=== PATIENT | male | born 1955 | race Caucasian/White ===

== ENCOUNTER 2023-07-31 07:35 | Outpatient (CLI) | payer MEDICARE, SELFPAY ==
--- NOTE | ~2023-07-31 | CT_ITS ---
EXAMINATION: CTA brain carotid DATE: 07/31/2023 08:18 INDICATION: Aortic dilatation. Benign essential hypertension. TECHNIQUE: Computed tomographic angiography (CTA) of the head was performed without and with 100 mL O mnipaque-350 intravenous contrast. CTA of the neck was performed with intravenous contrast. Automated exposure control and iterative reconstruction technique were employed. The dose-length product was 1 692.37 mGy-cm. Maximum intensity projection and volume rendered 3D-reconstructions were created by adela technologist on a separate workstation. COMPARISON: None. FINDINGS: HEAD CTA: There is no intracranial hemorrhage, acute infarction, or abnormal intracranial mass lesion . The ventricles are normal in size. There is mild mucosal thickening in the paranasal sinuses. The m astoid air cells are normal. The orbits are normal. The vertebral arteries are codominant. There is n o significant stenosis of basilar artery or the posterior cerebral arteries. The posterior communicat ing arteries are normal. There is no significant stenosis of the intracranial internal carotid arteri es or anterior or middle cerebral arteries. Anterior communicating artery is normal. There is no aneu rysm. NECK CTA: There are no pathologically enlarged lymph nodes. There is no significant stenosis of the v ertebral arteries. There is plaque in the proximal internal carotid arteries. There is 0% stenosis of the proximal right internal carotid artery relative to normal distal artery lumen diameter (NASCET c riteria). There is 0% stenosis of the proximal left internal carotid artery relative to normal distal artery lumen diameter. There is severe cervical spondylosis. IMPRESSION: 1. Normal brain. No aneurysm or significant intracranial arterial stenosis. 2. 0% stenosis of the proximal internal carotid arteries relative to normal distal artery lumen diame ters (NASCET criteria). Reviewed, dictated and finalized at location E. IMPRESSION: 1. Normal brain. No aneurysm or significant intracranial arterial stenosis. 2. 0% stenosis of the proximal internal carotid arteries relative to normal dis gold artery lumen diameters (NASCET criteria).
[2023-07-31 08:09] LABS: Estimated Glomerular Filt Rate 51
== END 2023-07-31 07:36 | disposition home or self-care (01) ==
PROVIDERS: PCP Internal Medicine; Visit Provider Internal Medicine Cardiovascular Disease
DX: R55 Syncope and collapse (principal); I77.810 Thoracic aortic ectasia; I10 Essential (primary) hypertension
CPT/HCPCS: 70496; 70498; Q9967

== ENCOUNTER 2025-07-03 01:14 | Emergency (ER) | payer MEDICARE, SELFPAY ==
--- OUTSIDE RECORDS SUMMARY | 2009-09-30 19:00 | XMS_ITS | Continuity of Care Document ---
Author Organization [facility] Address [address] [facility] [address] [place] [address] Phone Care Team Providers Care House Visitor Name Role Phone Administrative, Provider Unavailable Unavail able Procedures Procedure Date Medical Record Copy Medical Record Copy Per Page Office/outpatient visit,est, mod 2005 Supplemental Report Office/outpatient visit,est, mod 2005 Supplemental Report Office consultation, moderate 6 X-ray exam of shoulder, complete 2005 Advance Directives Directive Yes / No Effective Date File Name No Information Encounters Encounter Description Practice Location Reason(s) For Visit Diagnoses Date Provider Providers Copied on Encounter [facility], [address] [place] [address], [id number], tel:[phone] [facility] No Information 9 Administrative Provider. [address] [place] [address], [place] [address], [place], [place], [id number], [place]. tel:[phone] Office/outpa tient visit,est, mod [facility], [address] [place] [address], [id number], [place] tel:[phone] [facility] No Information 6 Valentina Conway. [address] [facility], [place] [address], [place], [place], [id number], [place]. tel:[phone] Office/outpa tient visit,est, [facility], [address] [facility] [address], [place], [place], [id number], [place] tel:[phone] [facility] No Information 6 Valentina Conway. [address] [facility], [address], [place], [place], [id number], [place]. tel:[phone] Office consultation , moderate [facility], [address] [facility] [address], [place], [place], [id number], [place] tel:[phone] [facility] No Information 6 Valentina Conway. [address] [facility], [address], [place], [place], [id number], [place]. tel:[phone] Family History Family Member Type Diagnosis Age At Onset No Information Payers Payer name Insurance type Covered libertarian ID Authoriza tion(s) No Information Social History Type Description Quantity Date Captured Comments Sex Male Smoking Status No Information Chief Complaint And Reason For Visit No Information Reason For Referral Reason For Referral No Information History Of Present Illness Encounter Date Complaint History Of Prese nt Illness No Information Functional Status Date Functional Assessmen t No Information Instructions Date Instruction Additional Infor mation No Information Assessments Type Assessment Date No Information Patient Care Teams Name Effective Dates (start - stop) Status Members No Information
--- OUTSIDE RECORDS SUMMARY | 2025-06-16 11:00 | XMS_ITS | Continuity of Care Document ---
Author Organization [facility] Address [address] [place] [address] Phone Care Team Providers Care Recruitment Consultant Name Role Phone Kanwal Lee MD Unavailable Unavailabl e Medications Medication Instructions Dosage Effective Dates (start - stop) Status Comments nifedipine ER 30 mg tablet,extended release 24 hr take 1 tablet by oral route every day 30 MG - Active trospium ER 60 mg capsule,extended release 24 hr TAKE 1 CAPSULE BY MOUTH EVERY DAY - Active bupropion HCl XL 150 mg 24 hr tablet, extended release TAKE 1 TABLET BY MOUTH EVERY DAY IN THE MORNING FOR MAJOR DEPRESSIVE DISORDER - Active triamcinolone acetonide 0.1 % topical cream - Active lisinopril 40 mg tablet TAKE 1 TABLET BY MOUTH EVERY DAY - Active metoprolol tartrate 25 mg tablet TAKE 1/2 TABLET TWICE A DAY BY MOUTH - Active escitalopram 20 mg tablet - Active ketoconazole 2 % shampoo PLEASE SEE ATTACHED FOR DETAILED DIRECTIONS - No Longer Active ciprofloxacin 750 mg tablet - No Longer Active ketoconazole 2 % topical cream APPLY SMALL AMOUNT TO LEGS 2 TIMES A DAY - No Longer Active trospium 20 mg tablet - No Longer Active cephalexin 500 mg capsule - No Longer Active sulfamethoxazole 800 mg-trimethoprim 160 mg tablet TAKE 1 TABLET BY MOUTH TWICE A DAY FOR 10 DAYS - No Longer Active rosuvastatin 40 mg tablet - No Longer Active amoxicillin 250 mg capsule - No Longer Active tramadol 50 mg tablet TAKE 1 TABLET BY MOUTH EVERY 6 HOURS NEEDED FOR MODERATE OR SEVERE PAIN No Longer Active rosuvastatin 20 mg tablet TAKE 1 TABLET BY MOUTH EVERY NIGHT AT BEDTIME No Longer Active cyclobenzaprine 5 mg tablet No Longer Active penicillin V potassium 500 mg tablet No Longer Active tizanidine 2 mg tablet No Longer Active Procedures Procedure Date Complex e/m visit add on OFFICE/OUTPATIENT VISIT, EST REM MNTR PHYSIOL CINDA DEV REM PHYSIOL MNTR 20 MIN MO ICM DEVICE INTERROGAT REMOTE PM/ICD REMOTE TECH SERV PM DEVICE INTERROGATE REMOTE REM PHYSIOL MNTR EA ADDL REM MNTR PHYSIOL CINDA DEV REM PHYSIOL MNTR 20 MIN MO ICM DEVICE INTERROGAT REMOTE Advance Directives Directive Yes / No Effective Date File Name No Information Encounters Encounter Description Practice Location Reason(s) For Visit Diagnoses Date Provider Providers Copied on Encounter OFFICE/OUTPA TIENT VISIT, EST [facility], [facility] [place], [place], [id number] , [place] tel: [phone] [facility] telehealth (chief complaint) Essential (primary) hypertensionHyperli pidemia, unspecifiedPresence of cardiac pacemaker Jesus Schofield. [address] [place] [address], [place], [place], [id number], [place]. tel:[phone] Referring Provider: Kanwal Lee, [address] [place] [address], [id number] . tel:[phone] [facility], [address] [place] [address], [id number] , tel: [phone] [facility] No Information 5 Miguelvavinod Stoverus. [address] [place] [address], [id number], . tel:[phone] REM MNTR PHYSIOL CINDA DEV [facility], [address] [place] [address], [id number] , tel: [phone] [facility] [place] No Information 5 Miguelvavinod Stoverus. [address] [place] [address], [id number], . tel:[phone] Referring Provider: Kanwal Lee, [address] [place], [place] [address], [address] . tel:[phone] Provider: Kanwal Lee, [address] [place] [address], [address] . tel:[phone] [facility] , [address] [place] [address], [id number] , tel: [phone] [facility] [place] Essential (primary) hypertensionPresenc e of cardiac pacemaker 5 Jesus Schofield. [address] [place] [address], [id number], . tel:[phone] Referring Provider: Kanwal Lee, [address] [place], [place] [address], [address] . tel:[phone] Provider: Kanwal Lee, [address] [place] [address], [id number] . tel:[phone] [facility], [address] [place] [address], [id number] , tel: [phone] [facility] [place] Essential (primary) hypertensionPresenc e of cardiac pacemaker 5 Kalvavinod Stauffereliazarus. [address] [place] [address], [id number], . tel:[phone] Referring Provider: Kanwal Lee, [address] [place] [address], [place], [address] . tel:[phone] Provider: Kanwal Lee, [address] [place] [address], [place], [address] . tel:[phone] REM PHYSIOL MNTR EA ADDL 20 [facility], [address] [place] [address], [id number] , tel: [phone] [facility] [place] Essential (primary) hypertensionPresenc e of cardiac pacemaker 5 Kalvaitis eliazarus. [address] [place] [address], [id number], . tel:[phone] Referring Provider: Kanwal Lee, [address] [place] [address], [place], [address] . tel:[phone] Provider: Kanwal Lee, [address] [place] [address], [place], [address] . tel:[phone] [facility], [address] [place] [address], [id number] , tel: [phone] [facility] [place] Essential (primary) hypertensionPresenc e of cardiac pacemaker 5 Miguelvavinod Stauffereliazarus. [address] [place] [address], [id number], . tel:[phone] Referring Provider: Kanwal Lee, [address] [place] [address], [place], [address] . tel:[phone] Provider: Kanwal Lee, [address] [place] [address], [place], [address] . tel:[phone] [facility], [address] [place] [address], [id number] , tel: [phone] [facility] Dilatation of aortaBradycardiaSic k sinus syndromeHyperlipide miaPVCsPalpitations Syncope Kalvaitis Saulius. [address], [place], [place], [id number], [place]. tel:[phone] Family History Family Member Type Diagnosis Age At Onset No Information Payers Payer name Insurance type Covered alliance party ID Authoriza tion(s) [employer] MEDICARE VALUE ADVANTRA PPO [id number] Social History Type Description Quantity Date Captured Comments Alcohol Use Details Unknown Caffeine Use Details Unknown Tobacco Use Status No Information Smoking Status No Information Sex Male Chief Complaint And Reason For Visit From encounter dated '06/16/2025 16:00'. telehealth (chief complaint) Reason For Referral Reason For Referral No Information Plan Of Treatment Date Type Action Status Appointment Man Rodríguez BOOKED History Of Present Illness Encounter Date Complaint History Of Prese nt Illness telehealth Functional Status Date Functional Assessmen t No Information Instructions Date Instruction Additional Infor mation No Information Assessments Type Assessment Date assessment Essential (primary) hypertension assessment Hyperlipidemia, unspecified assessment Presence of cardiac pacemaker Au Patient Care Teams Name Effective Dates (start - stop) Status Members No Information
[2025-07-03] VITALS (27 sets, daily range): BP systolic 79–190; BP diastolic 46–173; PULSE 56–61; RESP 0–28; TEMP 36.3–36.7; O2SAT 89–99
--- NOTE | ~2025-07-03 | XR_ITS ---
EXAMINATION: XR shoulder RT min 2V DATE: 07/03/2025 01:43 INDICATION: Right shoulder dislocation TECHNIQUE: AP and transscapular Y views of the right shoulder were obtained. COMPARISON: None FINDINGS: Right glenohumeral anterior dislocation. No acute fracture. Moderate acromioclavicular osteoarthritis. Severe cervical spondylosis. Small right lung volume without evident acute cardiopulmonary disease. Dual-lead cardiac pacemaker with one lead tip terminating at the right atrial appendage and the second extending towards the right ventricle beyond the margin of the field of imaging. IMPRESSION: Anterior right glenohumeral dislocation without evident fracture. Reviewed, dictated and finalized at location A.
--- NOTE | ~2025-07-03 | XR_ITS ---
EXAMINATION: XR shoulder RT min 2V DATE: 07/03/2025 02:56 INDICATION: Right shoulder dislocation post attempted reduction TECHNIQUE: AP and transscapular Y views of the right shoulder were obtained. COMPARISON: None FINDINGS: Successful reduction of the previously dislocated right glenohumeral joint. There is some cephalad subluxation of the humeral head with respect to the glenoid with narrowing of the subacromial space consistent with rotator cuff tear. No fracture. Marginal osteophytes along the humeral head and glenoid consistent with at least mild osteoarthritis. Is also mild to moderate osteoarthritis at the right acromioclavicular joint. Visualized portion of the lungs are clear. Lung volume appears small with some elevation the right hemidiaphragm. Dual lead pacemaker seen with leads projecting over the expected locations of the right atrium and right ventricular outflow. IMPRESSION: Successful reduction of the previously dislocated right glenohumeral joint with some cephalad subluxation suggesting right rotator cuff tear. Reviewed, dictated and finalized at location A.
--- OUTSIDE RECORDS SUMMARY | 2025-07-03 01:15 | XMS_ITS | Clinical Summary ---
Author Organization [facility] Address [address] [place] [address] Care Team Providers Care Vice President Mission Integration Name Role Phone Unavailable Primary Care Provider Unavailabl e Social History Tobacco Use Types Packs/Day Years Used Date Smoking Tobacco: Never Assessed Sex and Gender Information Value Date Recorded Sex Assigned at Not on file Legal Sex Male 9:42 AM CDT Gender Identity Not on file Sexual Orientation Not on file Plan of Treatment Health Maintenance Due Date Last Done Comments DTAP/TDAP/TD VACCINES (1 - Tdap) 1976 COLORECTAL SCREENING 2002 Colorectal Cancer Screening 2002 FIT-DNA Q 3 years 2002 FIT/FOBT Q 1 year 2002 Flex Sig/CT Colonography Q 5 years 2002 PNEUMOCOCCAL VACCINE 50+ YEARS (1 of 1 - PCV) 11/27/19 08 ZOSTER VACCINE (1 of 2) 2007 INFLUENZA VACCINE (#1) 2025 RSV VACCINE (60+ or ) (1 - 1-dose 75+ series) 2032
--- OUTSIDE RECORDS SUMMARY | 2025-07-03 01:16 | XMS_ITS ---
Author Organization [facility] Address [address] [place] [address] Care Team Providers Care Assistant Produce Manager Name Role Phone Man Damon MD Primary Care Provider [phone] Ozzy Ramirez HUMAN PERFORMANCE TECHNOLOGIST Unavailable [phone] Laverne Shelton PT Unavailable Unavailable Jg Shelton PT Unavailable Unavailable Active Problems Problem Noted Date Diagnosed Date Sepsis 04/23/2025 Fever, unspecified fever cause 04/22/2025 Syncope 10/09/2021 Overview (10/09/2021): Added automatically from request for surgery [id number] Primary osteoarthritis of right knee 10/28/2019 Overview (10/28/2019): Added automatically from request for surgery [id number] Melanoma in situ of shoulder, right 04/11/2019 Anxiety 04/12/2018 GERD (gastroesophageal reflux disease) 8 OA (osteoarthritis) 04/12/2018 Chronic left shoulder pain 03/31/2018 Aftercare following joint replacement 02/12/2018 Orthostatic hypotension 03/04/2016 Arthralgia of shoulder 11/06/2010 Current Treatment and Therapy Plans No current plan information found. Past Treatment and Therapy Plans No past plan information found. Lifetime Dose Tracking * Chemical Lifetime Dose Automatic Entry Manual Entr y Fluoro Time 0.13 minutes 0.13 minutes 0 minutes
--- OUTSIDE RECORDS SUMMARY | 2025-07-03 01:16 | XMS_ITS | Encounter Summary ---
Author Organization [facility] Address [address] [place] [address] Phone Care Team Providers Care Engineering Supplies Sales Name Role Phone Man Damon MD Primary Care Provider [phone] Oliverio Marion MD Unavailable Gideon Freeman MD Unavailable Reason for Visit * Reason Onset Date Comments Medication Refill 06/28/2025 Encounter Details Date Type Department Care Team (Late st Contact Info) Description 06/28/2025 Refill [facility] [place] [address] Gideon Freeman MD [address] [address] Medication Refill Social History Tobacco Use Types Packs/Day Years Used Date Smoking Tobacco: Never Smokeless Tobacco: Former Chew Quit: 2023 Alcohol Use Standard Drinks/Week Comments Yes 10 (1 standard drink = 0.6 oz pu re alcohol) socially 10 beers a week [facility] Utilities Answer Date Recorded In the past 12 months has [employer], gas, oil, or water [employer] threatened to shut off services in your home? No 06/28/2024 Social Connection and Isolation Panel Answer Date Recorded In a typical week, how many times do you talk on the phone with family, friends, or neighbors? Three times a week 06/28/2024 How often do you get togethe r with friends or relatives? Three times a week 06/28/2024 How often do you attend chur ch or anabaptist services? Never 06/28/2024 Do you belong to any clubs o r organizations such as christianity groups, unions, fraternal or athletic groups, or school groups? No 06/28/2024 How often do you attend meet ings of the clubs or organizations you belong to? Never 06/28/2024 Are you , , di vorced, , never , or living with a partner? 06/28/2024 AUDIT-C Answer Date Recorded Q1: How often do you have a drink containing alc ohol? 2-3 times a week 06/28/2024 Q2: How many drinks containi ng alcohol do you have on a typical day when you are drinking? 3 or 4 06/28/2024 Q3: How often do you have si x or more drinks on one occasion? Less than monthly 06/28/2024 Overall Financial Resource Strain (CARDIA) Answe r Date Recorded How hard is it for you to pa y for the very basics like food, housing, medical care, and heating? Somewhat hard 06/28/2024 PHQ-2 Answer Date Recorded Total Score - Questions 1-9 0 05/03 [facility] - Occupational Stress Questionnaire Answer Date Recorded Do you feel stress - tense, restless, nervous, or anxious, or unable to sleep at night because your mind is troubled all the time - these days? Very much 06/28/2024 Exercise Vital Sign Answer Date Recorde d On average, how many days pe r week do you engage in moderate to strenuous exercise (like a brisk walk)? 2 days 06/28/2024 On average, how many minutes do you engage in exercise at this level? 10 min 06/28/2024 Hunger Vital Sign Answer Date Recorded Within the past 12 months, y ou worried that your food would run out before you got the money to buy more. Never true 06/28/20 24 Within the past 12 months, t he food you bought just didn't last and you didn't have money to get more. Never true 06/28/2024 PRAPARE - Transportation Answer Date Re corded In the past 12 months, has l ack of transportation kept you from medical appointments or from getting medications? No 06/03 In the past 12 months, has l ack of transportation kept you from meetings, work, or from getting things needed for daily living? No 06/28/2024 Housing Stability Vital Sign Answer Yazan e Recorded In the last 12 months, was t here a time when you were not able to pay the mortgage or rent on time? No 06/28/2024 In the past 12 months, how m any times have you moved where you were living? 0 06/28/2024 At any time in the past 12 m [facility], were you homeless or living in a residential (including now)? 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 Requested Prescriptions Pending Prescriptions Disp Refills Trospium Chloride 60 MG CAPSULE SR 24 HR 30 Capsule 1 Sig: Take 1 Capsule by mouth daily for 30 days. Urinary Anticholinergics Protocol Failed - 06/28/2025 3:43 PM Failed - Active on medication list Failed - GFR greater than or equal to 30 in past 12 months GFR, EST. NONAFRICAN Date Value Ref Range Status 06/03/2024 54 (L) >=60 Final Passed - Visit with relevant provider in past 12 months or upcoming 90 days Recent Visits Date Type Provider Dept 05/30/25 Office Visit Man Damon MD [facility] 05/02/25 Office Visit Man Damon MD [facility] 04/19/25 Procedure Visit Gideon Freeman MD [facility] [place] 01/11/25 Office Visit Gideon Freeman MD [facility] [place] 11/09/24 Office Visit Gideon Freeman MD [facility] [place] 09/28/24 Office Visit Gideon Freeman MD [facility] [place] 08/30/24 Office Visit Man Damon MD [facility] 08/10/24 Procedure Visit Gideon Freeman MD [facility] [place] 07/06/24 Office Visit Gideon Freeman MD [facility] [place] 06/30/24 Office Visit Man Damon MD [facility] [place] Showing recent visits within past 365 days and meeting all other requirements Future Appointments Date Type Provider Dept 07/04/25 Appointment Man Damon MD [facility] [place] Showing future appointments within next 90 days and meeting all other requirements * Telephone Encounter - Bryanna Moreno CNA - 06/28/2025 2:20 PM CDT Refill documented in this encounter Plan of Treatment Upcoming Encounters Date Type Department Care Team (Late st Contact Info) Description 07/04/2025 2:30 PM CDT Office Visit [facility] [place] [address] Man Damon MD [address] [address] 09/27/2025 11:00 AM PHOTOGRAPHIC SUPERVISOR Office Visit [facility] [place] [address] Man Damon MD [address] [address] 11/08/2025 9:30 AM PHOTOGRAPHIC SUPERVISOR Office Visit [facility] [place] [address] Gideon Freeman MD [address] [facility] [address] [place] [address] documented as of this encounter Visit Diagnoses Not on filedocumented in this encounter Additional Health Concerns Assessment Noted Time PHQ-9 Depression Total Score: 0 05/30/20 25 10:22 AM CDT documented as of this encounter Care Teams Engineering Supplies Sales Relationship Specialty Start Date End Date Man Damon MD [address] [facility] [address] [place] [address] PCP - General Family Medicine 03/29/19 Oliverio Marion MD [address] [facility] [address] [place] [address] Consulting Physician Colon and Rectal Surgery 06/30/22 Gideon Freeman MD [address] [facility] [address] [place] [address] Consulting Physician Urology 07/06/24 documented as of this encounter
--- OUTSIDE RECORDS SUMMARY | 2025-07-03 01:16 | XMS_ITS | Encounter Summary ---
Author Organization [facility] Address [address] [place] [address] Phone Care Team Providers Care Cnc Mechanic Name Role Phone Man Damon MD Primary Care Provider [phone] Oliverio Marion MD Unavailable Gideon Freeman MD Unavailable Reason for Visit * Reason Comments Medication Refill Encounter Details Date Type Department Care Team (Late st Contact Info) Description 08/05/2021 Refill [facility] - Family Medicine [facility] [address] [place] [phone] Man Damon MD #[address] [address] Medication Refill Social History Tobacco Use Types Packs/Day Years Used Date Smoking Tobacco: Never Smokeless Tobacco: Current Chew Alcohol Use Standard Drinks/Week Comments Yes 0 (1 standard drink = 0.6 oz pur e alcohol) socially 6 beers a week PHQ-2 Answer Date Recorded Total Score - Questions 1-9 19 05/02 Sex and Gender Information Value Date Recorded Sex Assigned at Not on file Legal Sex Male 7:08 PM CDT Gender Identity Not on file Sexual Orientation Not on file 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 No / Unsure 07/18/2021 11:03 AM CDT documented as of this encounter Plan of Treatment Upcoming Encounters Date Type Department Care Team (Late st Contact Info) Description 07/04/2025 2:30 PM CDT Office Visit [facility] [address] [place] [address] Man Damon MD #2 [facility] [address] [place] [address] 09/27/2025 11:00 AM CONTINUOUS PROCESS MACHINE OPERATOR Office Visit [facility] #2 [place] [address] Man Damon MD #2 [facility] [address] [place] [address] 11/08/2025 9:30 AM CONTINUOUS PROCESS MACHINE OPERATOR Office Visit [facility] #2 [place] [phone] Gideon Freeman MD #2 [facility] [address] [place] [address] documented as of this encounter Visit Diagnoses Not on filedocumented in this encounter Additional Health Concerns Assessment Noted Time PHQ-9 Depression Total Score: 19 021 5:00 PM CDT documented as of this encounter Care Teams Cnc Mechanic Relationship Specialty Start Date End Date Man Damon MD #2 [facility] [address] [place] [address] PCP - General Family Medicine 03/29/19 Oliverio Marion MD #2 [facility] [address] [place] [address] Consulting Physician Colon and Rectal Surgery 06/30/22 Gideon Freeman MD [facility]2 [facility] [address] [place] [address] Consulting Physician Urology 07/06/24 documented as of this encounter
--- OUTSIDE RECORDS SUMMARY | 2025-07-03 01:16 | XMS_ITS | Encounter Summary ---
Author Organization [facility] Address [address] [place] [address] Phone Care Team Providers Care Chainstitch Elastic Attacher Name Role Phone Man Damon MD Primary Care Provider [phone] Oliverio Marion MD Unavailable Gideon Freeman MD Unavailable Reason for Visit * Reason Comments Medication Refill Encounter Details Date Type Department Care Team (Late st Contact Info) Description 03/27/2021 Refill [facility] - Family Medicine [facility] #2 [place] [phone] Man Damon MD #[address] [address] Medication Refill Social History Tobacco Use Types Packs/Day Years Used Date Smoking Tobacco: Never Smokeless Tobacco: Current Chew Alcohol Use Standard Drinks/Week Comments Yes 0 (1 standard drink = 0.6 oz pur e alcohol) socially 6 beers a week PHQ-2 Answer Date Recorded Total Score - Questions 1-9 12 04/03 Sex and Gender Information Value Date Recorded Sex Assigned at Not on file Legal Sex Male 7:08 PM CDT Gender Identity Not on file Sexual Orientation Not on file 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 Requested Prescriptions Pending Prescriptions Disp Refills lisinopril (PRINIVIL, ZESTRIL) 20 MG Tablet [Pharmacy Med Name: LISINOPRIL 20 MG TABLET] 90 Tablet 1 Sig: TAKE 1 TABLET BY MOUTH EVERY DAY NAY Inhibitors Protocol Failed - 03/27/2021 12:23 AM Failed - Normal serum creatinine in past 12 months CREATININE, BLOOD Date Value Ref Range Status 03/29/2019 1.04 0.80 - 1.30 mg/dL Final Failed - Normal serum potassium in past 12 months POTASSIUM Date Value Ref Range Status 03/29/2019 4.1 3.5 - 5.1 mmol/L Final Passed - Blood pressure on record in past 12 months Clinician-entered: BP Readings from Last 3 Encounters: 08/20/20 128/72 04/25/20 (!) 150/98 03/19/20 146/90 Patient-entered: No data recorded Passed - Visit with relevant provider in past 12 months or upcoming 90 days Recent Visits Date Type Provider Dept 08/20/20 Office Visit Man Damon MD [facility] 04/25/20 Office Visit Man Damon MD [facility] Showing recent visits within past 365 days and meeting all other requirements Future Appointments No visits were found meeting these conditions. 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 Office Visit [facility] [facility] [place] [address] Man Damon MD #2 [facility] [address] [place] [address] 11/08/2025 9:30 AM BURRING WHEEL OPERATOR Office Visit [facility] #[address] [facility] [address] Gideon Freeman MD #2 [facility] [address] [place] [address] documented as of this encounter Visit Diagnoses Diagnosis Essential hypertension Unspecified essential hypertension documented in this encounter Additional Health Concerns Assessment Noted Time PHQ-9 Depression Total Score: 12 04/25/ 020 2:33 PM CDT documented as of this encounter Care Teams Chainstitch Elastic Attacher Relationship Specialty Start Date End Date Man Damon MD #2 [facility] [address] [place] [address] PCP - General Family Medicine 03/29/19 Oliverio Marion MD #2 [facility] [address] [place] [address] Consulting Physician Colon and Rectal Surgery 06/30/22 Gideon Freeman MD #2 [facility] [address] [place] [address] Consulting Physician Urology 07/06/24 documented as of this encounter
--- OUTSIDE RECORDS SUMMARY | 2025-07-03 01:16 | XMS_ITS | Clinical Summary ---
Author Organization [facility] Address [address] [place] [address] Care Team Providers Care Junior Art Director Name Role Phone Man Damon MD Primary Care Provider + [phone] Ozzy Ramirez HRIS ANALYST Unavailable [phone] Laverne Shelton PT Unavailable Unavailable Jg Shelton PT Unavailable Unavailable Allergies No known active allergies Medications aspirin 81 mg chewable tabletIndicatio ns:Deep Vein Thrombosis Prevention Take 1 tablet (81 mg total) by mouth 2 (two) times a day 60 tablet 11/30/2019 Active celecoxib (CeleBREX) 200 mg capsuleIndicati ons:Postoperati ve Acute Pain,Pain Take 1 capsule (200 mg total) by mouth 2 (two) times a day 60 capsule 11/30/2019 Active cholecalciferol (VITAMIN D-3) 2000 unit capsule Take 1 capsule (2,000 Units total) by mouth daily 30 capsule 11/30/2019 Active lisinopriL (PRINIVIL,ZESTR IL) 20 mg tablet Take 1 tablet (20 mg total) by mouth daily 04/25/2020 Active trospium XR (SANCTURA XR) 60 mg capsule,extende d release 24hr Take 1 capsule (60 mg total) by mouth daily Active escitalopram (Lexapro) 20 mg tablet Take 1 tablet (20 mg total) by mouth daily Active rosuvastatin (CRESTOR) 40 mg tablet Take 1 tablet (40 mg total) by mouth daily Active metoprolol tartrate (LOPRESSOR) 25 mg immediate release tablet Take 0.5 tablets (12.5 mg total) by mouth 2 (two) times a day Active vitamin E 400 unit capsule Take 1 capsule (400 Units total) by mouth 2 (two) times a day Active Active Problems Problem Noted Date Diagnosed Date Sepsis 04/23/2025 Fever, unspecified fever cause 04/22/2025 Syncope 10/09/2021 Overview (10/09/2021): Added automatically from request for surgery [id number] Primary osteoarthritis of right knee 10/28/2019 Overview (10/28/2019): Added automatically from request for surgery [id number] Melanoma in situ of shoulder, right 04/11/2019 Anxiety 04/12/2018 GERD (gastroesophageal reflux disease) 8 OA (osteoarthritis) 04/12/2018 Chronic left shoulder pain 03/31/2018 Aftercare following joint replacement 02/12/2018 Orthostatic hypotension 03/04/2016 Arthralgia of shoulder 11/06/2010 Encounters Date Type Department Care Team Description 06/23/2025 2:30 PM CDT Therapy [address] [facility] [place] [address] Laverne Shelton, PT Lumbar radiculopathy (Primary Dx) 06/21/2025 2:30 PM CDT Therapy [address] [facility] [place] [address] Laverne Shelton, PT Lumbar radiculopathy (Primary Dx) 06/16/2025 2:30 PM CDT Therapy [address] [facility] [place] [address] Jg Shelton, PT Lumbar radiculopathy (Primary Dx); Lumbar facet joint syndrome 06/14/2025 2:30 PM CDT Therapy [address] [facility] [place] [address] Laverne Shelton, PT Lumbar radiculopathy (Primary Dx) 06/09/2025 8:00 AM CDT Therapy [address] [facility] [place] [address] Jg Shelton, PT Lumbar radiculopathy (Primary Dx); Lumbar facet joint syndrome 06/07/2025 2:30 PM CDT Therapy [address] [place] [address] Laverne Shelton, PT Lumbar radiculopathy (Primary Dx) 06/02/2025 2:45 PM CDT Therapy [address] [facility] [place] [address] Laverne Shelton, PT Lumbar radiculopathy (Primary Dx) 05/25/2025 9:15 AM CDT Therapy [address] [facility] [place] [address] Laverne Shelton, PT Lumbar radiculopathy (Primary Dx) 05/19/2025 1:00 PM CDT Therapy [address] [place] [address] Laverne Shelton, PT Lumbar radiculopathy (Primary Dx) 05/17/2025 2:30 PM CDT Therapy [address] [facility] [place] [address] Laverne Shelton, PT Lumbar radiculopathy (Primary Dx); Lumbar facet joint syndrome 05/17/2025 Plan of Care Documentation [address] [address] 04/22/2025 2:37 PM CDT - 04/25/2025 2:20 PM CDT Hospital Encounter [facility] [address] [place] [address] Michael Archuleta MD Nikolic, Jelena, MD Fever, unspecified fever cause (Primary Dx) Discharge Disposition: Discharge to home or self care 04/07/2025 9:30 AM CDT Office Visit [facility] [address] [address] Neetu Dugan, MANSI Lumbar radiculopathy (Primary Dx); Lumbar facet joint syndrome from Last 3 Months Surgical History Surgery Date Site/Laterality Comments FLUORO GUIDED INJECTION SHOULDER LEFT 04/12/2018 Lef t SHOULDER SURGERY JOINT REPLACEMENT KNEE ARTHROSCOPY Medical History Medical History Date Comments Hypertension Hypercholesteremia GERD (gastroesophageal reflux disease) Family History Medical History Relation Name Comments Hypertension Brother 1 Family history of hypertension - (Added by TW Conv) Arthritis Brother 2 Family history of arthritis - (Added by TW Conv) Cancer Father Family history of malignant neoplasm - (Added by TW Conv) Gout Mother Family history of gout - (Added by TW Conv) Hypertension Mother Family history of hypertension - (Added by TW Conv) Arthritis Sister Family history of arthritis - (Added by TW Conv) Relation Name Status Comments Brother 1 Brother 2 Father Mother Sister Social History Tobacco Use Types Packs/Day Years Used Date Smoking Tobacco: Never Smokeless Tobacco: Current Alcohol Use Standard Drinks/Week Comments Yes 0 (1 standard drink = 0.6 oz pur e alcohol) occasional [facility] Utilities Answer Date Recorded In the past 12 months has [employer] electric, gas, oil, or water [employer] threatened to shut off services in your home? No 04/24/2025 Social Connection and Isolation Panel Answer Date Recorded In a typical week, how many times do you talk on the phone with family, friends, or neighbors? More than three times a week 04/24/2025 How often do you get togethe r with friends or relatives? More than three times a week 04/24/2025 How often do you attend [facility] or shinto services? Never 04/24/2025 Do you belong to any clubs o r organizations such as voodoo groups, unions, fraternal or athletic groups, or school groups? No 04/24/2025 How often do you attend meet ings of the clubs or organizations you belong to? Never 04/24/2025 Are you , , di vorced, , never , or living with a partner? 04/24/2025 AUDIT-C Answer Date Recorded Q1: How often do you have a drink containing alc ohol? Monthly or less 04/22/2025 Q2: How many drinks containi ng alcohol do you have on a typical day when you are drinking? 1 or 2 04/22/2025 Q3: How often do you have si x or more drinks on one occasion? Monthly 04/22/2025 Overall Financial Resource Strain (CARDIA) Answe r Date Recorded How hard is it for you to pa y for the very basics like food, housing, medical care, and heating? Not hard at all 04/24/2025 Hunger Vital Sign Answer Date Recorded Within the past 12 months, y ou worried that your food would run out before you got the money to buy more. Never true 04/24/20 25 Within the past 12 months, t he food you bought just didn't last and you didn't have money to get more. Never true 04/24/2025 PRAPARE - Transportation Answer Date Re corded In the past 12 months, has l ack of transportation kept you from medical appointments or from getting medications? No 04/03 In the past 12 months, has l ack of transportation kept you from meetings, work, or from getting things needed for daily living? No 04/24/2025 Housing Stability Vital Sign Answer Yazan e Recorded In the last 12 months, was t here a time when you were not able to pay the mortgage or rent on time? No 04/24/2025 In the past 12 months, how m any times have you moved where you were living? 0 04/24/2025 At any time in the past 12 m [facility], were you homeless or living in a jail (including now)? No 04/24/2025 Personal Safety Answer Date Recorded Have you ever been in or are you currently in a harmful physical or emotional relationship or is someone making you feel afraid or unsafe? Denies 04/22/2025 Sex and Gender Information Value Date Recorded Sex Assigned at Not on file Legal Sex Male 12:50 PM [employer] Gender Identity Not on file Sexual Orientation Not on file Obstetrics History Last Filed Vital Signs Vital Sign Reading Time Taken Comments Blood Pressure 126/72 04/25/2025 7:30 AM CDT Pulse 63 04/25/2025 7:30 AM CDT Temperature 36.3 C (97.4 F) 04/25/2025 7:30 AM CDT Respiratory Rate 20 04/25/2025 7:30 AM CDT Oxygen Saturation 97% 04/25/2025 7:30 AM CDT Inhaled Oxygen Concentration - - Weight 105.2 kg (231 lb 14.8 oz) 04/22/2025 9:02 PM CDT Height 167.6 cm (5' 6) 04/22/2025 9:02 PM CDT Body Mass Index 37.43 04/22/2025 9:02 PM CDT Plan of Treatment Health Maintenance Due Date Last Done Comments Colon Cancer Screening-Colonoscopy 1957 Depression Screening 1957 Hepatitis C Screening 1957 Prostate Cancer Screening-PSA 1957 DTaP/Tdap/Td Vaccine (1 - Tdap) 1968 Hepatitis B Screening 1975 Pneumococcal vaccine 65+ (1 of 1 - PCV) 2007 Zoster Vaccine (1 of 2) 2007 Well Visit 65+ 2022 Covid-19 Vaccine (3 - season) 2024, 01/31/2021 Influenza Vaccine (#1) 2025 Fall Risk Assessment 04/25/2026 04/25/2025 Medical Devices Implanted Type Area Transplanter Device Identifier Shelf Expiration Date Model / Serial / Lot Lead (Ra) Lead Heart [employer] [id number] / [id number] / Lead (Rv) Lead Heart [employer] [id number] / [id number] / [employer] Accolade L311 Pacemaker Pacemaker Chest Wall [employer] [id number] / [id number] / [employer] [id number] Attune Cruciate Retain Cementless Knee Right 7 Component Femoral - [id number] Implanted:Qty: 1 on 11/29/2019 by Kyle Hernandez MD at [facility] Right: Knee [employer] 05/01/2028 [id number] / / [id number] [employer] [id number] Attune Cementless Rotate Platform Knee 8 Baseplate Tibial - [id number] Implanted:Qty: 1 on 11/29/2019 by Kyle Hernandez MD at [facility] Right: Knee [employer] 05/01/2029 [id number] / / [id number] [employer] [id number] Attune 6mm Cruciate Retaining Rotate Platform Knee 7 Insert - [id number] Implanted:Qty: 1 on 11/29/2019 by Kyle Hernandez MD at [facility] Right: Knee [employer] 07/02/2024 [id number] / / [id number] Procedures Procedure Name Priority Date/Time Associated Diagnosis Comments EGFR Routine 04/25/2025 9:26 AM CDT DIFFERENTIAL AUTO Routine 04/25/2025 9:2 6 AM CDT BASIC METABOLIC PANEL Routine 04/25/2025 9:26 AM CDT CBC WITH AUTO DIFFERENTIAL Routine 04/25/2025 9:26 AM CDT CALCIUM,IONIZED, WHOLE BLOOD Routine 04/25/2025 9:26 AM CDT EGFR Routine 04/24/2025 2:56 PM CDT DIFFERENTIAL AUTO Routine 04/24/2025 2:5 6 PM CDT BASIC METABOLIC PANEL Routine 04/24/2025 2:56 PM CDT CBC WITH AUTO DIFFERENTIAL Routine 04/24/2025 2:56 PM CDT MAGNESIUM Routine 04/24/2025 7:25 AM CDT BLOOD CULTURE Routine 04/23/2025 1:54 PM CDT BLOOD CULTURE Routine 04/23/2025 1:46 PM CDT EGFR Routine 04/23/2025 5:24 AM CDT DIFFERENTIAL AUTO Routine 04/23/2025 5:2 4 AM CDT MAGNESIUM Routine 04/23/2025 5:24 AM CDT COMPREHENSIVE METABOLIC PANEL Routine 04/23/2025 5:24 AM CDT CBC WITH AUTO DIFFERENTIAL Routine 04/23/2025 5:24 AM CDT INFLUENZA A/B, RSV, AND COVID-19 PCR STAT 04/22/2025 7:44 PM CDT URINALYSIS, MICROSCOPIC ONLY STAT 04/22/2025 6:29 PM CDT URINE CULTURE STAT 04/22/2025 6:29 PM CDT URINALYSIS AND REFLEX TO MICROSCOPIC AND CULTURE STAT 04/22/2025 6:[address] ABDOMEN PELVIS W CONTRAST ED 04/22/2025 4:04 PM CDT BLOOD CULTURE STAT 04/22/2025 3:44 PM CDT EGFR STAT 04/22/2025 3:22 PM CDT DIFFERENTIAL AUTO STAT 04/22/2025 3:2 2 PM CDT SEPSIS LACTATE WITH REFLEX STAT 04/22/2025 3:22 PM CDT COMPREHENSIVE METABOLIC PANEL STAT 04/22/2025 3:22 PM CDT CBC WITH AUTO DIFFERENTIAL STAT 04/22/2025 3:22 PM CDT BLOOD CULTURE STAT 04/22/2025 3:22 PM CDT XR CHEST 1 VIEW ED 04/22/2025 3:15 PM CDT from Last 3 Months Results * Calcium, ionized, whole blood (04/25/2025 9:26 AM CDT) Ca, ionized, bld 4.57 4.50 - 5.10 mg/dL Blood 04/25/2025 9:26 AM CDT 04/25/2025 9:32 AM CDT us Savana Barclay MD LAB BLOOD ORDERABLES Final Res ult [facility] ([place]) 1 [facility] [place] [address] * eGFR (04/25/2025 9:26 AM CDT) eGFR 89 >=60 mL/min/1. 73 m2 Comment: Interpretive Data Reference Interval Normal >/= 90 mL/min/1.73m2 Mildly decreased* 60 - 89 mL/min/1.73m2 Mildly to moderately decreased 45 - 59 mL/min/1.73m2 Moderately to severely decreased 30 - 44 mL/min/1.73m2 Severely decreased 15 - 29 mL/min/1.73m2 Kidney Failure < 15 mL/min/1.73m2 *Relative to young adult level Estimated glomerular filtration rate is determined by the 2020 CKD-EPI equation recommended by the National Kidney Foundation (A Unifying Approach to GFR Estimation: Recommendations of the NKF-ASK Task Force on Reassessing the Inclusion of Race in Diagnosing Kidney Disease, JASN 2020). The CKD-EPI equation should not be used for patients with unstable renal function and has not been validated in children and those over 70. Current interpretive data was last reviewed 2021. Blood 04/25/2025 9:26 AM CDT 04/25/2025 9:31 AM CDT us Savana Barclay MD LAB BLOOD ORDERABLES Final Res ult [facility] [place]) 1 [facility] [place] [address] * Differential, auto (04/25/2025 9:26 AM CDT) Neutrophil abs 2.37 1.50 - 6.50 K/cumm Imm gran abs 0.02 0.00 - 0.10 K/cumm [facility] ([place]) Lymphocyte abs 1.09 0.80 - 3.30 K/cumm [facility] ([place]) Monocyte abs 0.53 0.20 - 0.80 K/cumm [facility] ([place]) Eosinophil abs 0.07 0.00 - 0.50 K/cumm [facility] ([place]) Basophil abs 0.03 0.00 - 0.10 K/cumm [facility] ([place]) Neutrophil pct 57.7 % [facility] ([place]) Comment: Interpretive Data Percent cell count reference ranges are not reported, since discordance with absolute values may lead to misinterpretation of CBC data. Current Interpretive Data was last revised on 2018. Imm gran pct 0.5 % [facility] ([place]) Comment: Interpretive Data Percent cell count reference ranges are not reported, since discordance with absolute values may lead to misinterpretation of CBC data. Current Interpretive Data was last revised on 2018. Lymphocyte pct 26.5 % [facility] ([place]) Comment: Interpretive Data Percent cell count reference ranges are not reported, since discordance with absolute values may lead to misinterpretation of CBC data. Current Interpretive Data was last revised on 2018. Monocyte pct 12.9 % [facility] ([place]) Comment: Interpretive Data Percent cell count reference ranges are not reported, since discordance with absolute values may lead to misinterpretation of CBC data. Current Interpretive Data was last revised on 2018. Eosinophil pct 1.7 % [facility] ([place]) Comment: Interpretive Data Percent cell count reference ranges are not reported, since discordance with absolute values may lead to misinterpretation of CBC data. Current Interpretive Data was last revised on 2018. Basophil pct 0.7 % [facility] ([place]) Comment: Interpretive Data Percent cell count reference ranges are not reported, since discordance with absolute values may lead to misinterpretation of CBC data. Current Interpretive Data was last revised on 2018. Blood 04/25/2025 9:26 AM CDT 04/25/2025 9:31 AM CDT us Savana Barclay MD LAB BLOOD ORDERABLES Final Res ult [facility] ([place]) 1 [facility] Department [place] [address] * CBC with auto differential (04/25/2025 9:26 AM CDT) WBC 4.11 3.80 - 9.90 K/cumm Hgb 13.3 13.0 - 17.5 g/dL [facility] ([place]) Hct 40.4 38.9 - 50.3 % [facility] ([place]) Plt 152 150 - 400 K/cumm [facility] ([place]) MPV 9.1 9.1 - 12.3 fL [facility] ([place]) RBC 4.31 4.30 - 5.80 M/cumm [facility] ([place]) MCV 93.7 81.3 - 96.4 fL [facility] ([place]) MCH 30.9 27.1 - 33.3 pg [facility] ([place]) MCHC 32.9 32.3 - 35.7 g/dL [facility] ([place]) RDW CV 13.1 11.1 - 14.9 % [facility]) RDW SD 45.1 35.7 - 48.1 fL [facility]) NRBC abs 0.00 0.00 - 0.01 K/cumm [facility] ([place]) Blood 04/25/2025 9:26 AM CDT 04/25/2025 9:31 AM CDT us Savana Barclay MD LAB BLOOD ORDERABLES Final Res ult [facility] ([place]) 1 [facility] [place] [address] * Basic metabolic panel (04/25/2025 9:26 AM CDT) Pathologist [facility] Sodium 138 135 - 145 mmol/L Potassium, pl 4.0 3.3 - 4.9 mmol/L [facility]) Chloride 102 97 - 110 mmol/L [facility]) CO2 23 22 - 32 mmol/L [facility]) Anion gap 13 2 - 15 mmol/L [facility]) BUN 6 6 - 25 mg/dL [facility]) Creatinine 0.94 0.80 - 1.30 mg/dL [facility] ([place]) Glucose 115 70 - 199 mg/dL [facility] ([place]) Comment: Interpretive Data Fasting glucose >/= 126 mg/dl is diagnostic for diabetes. Fasting is defined as no caloric intake for at least 8 hours. Fasting glucose between 100 mg/dl to 125 mg/dl is diagnostic of prediabetes. In a patient with classic symptoms of hyperglycemia or hyperglycemic crisis, a random glucose >/= 200 mg/dl is diagnostic for diabetes. In the absence of unequivocal hyperglycemia, results should be confirmed by repeat testing. The classification and Diagnosis of Diabetes Diabetes Care 202; 46: S19-S40. Current interpretive data was last revised 2022. Calcium 8.6 8.5 - 10.3 mg/dL [facility] ([place]) Blood 04/25/2025 9:26 AM CDT 04/25/2025 9:31 AM CDT us Savana Barclay MD LAB BLOOD ORDERABLES Final Res ult [facility] BETANCOURT ([place]) 1 [facility] Department [place] [address] * eGFR (04/24/2025 2:56 PM CDT) eGFR 82 >=60 mL/min/1. 73 m2 Comment: Interpretive Data Reference Interval Normal >/= 90 mL/min/1.73m2 Mildly decreased* 60 - 89 mL/min/1.73m2 Mildly to moderately decreased 45 - 59 mL/min/1.73m2 Moderately to severely decreased 30 - 44 mL/min/1.73m2 Severely decreased 15 - 29 mL/min/1.73m2 Kidney Failure < 15 mL/min/1.73m2 *Relative to young adult level Estimated glomerular filtration rate is determined by the 2020 CKD-EPI equation recommended by the National Kidney Foundation (A Unifying Approach to GFR Estimation: Recommendations of the NKF-ASK Task Force on Reassessing the Inclusion of Race in Diagnosing Kidney Disease, JASN 2020). The CKD-EPI equation should not be used for patients with unstable renal function and has not been validated in children and those over 70. Current interpretive data was last reviewed 2021. Blood 04/24/2025 2:56 PM CDT 04/24/2025 3:05 PM CDT us Savana Barclay MD LAB BLOOD ORDERABLES Final Res ult [facility] ([place]) 1 [facility] Department [place] [address] * Differential, auto (04/24/2025 2:56 PM CDT) Neutrophil abs 2.04 1.50 - 6.50 K/cumm Imm gran abs 0.02 0.00 - 0.10 K/cumm [facility] ([place]) Lymphocyte abs 0.81 0.80 - 3.30 K/cumm [facility] ([place]) Monocyte abs 0.48 0.20 - 0.80 K/cumm [facility] ([place]) Eosinophil abs 0.06 0.00 - 0.50 K/cumm [facility] ([place]) Basophil abs 0.01 0.00 - 0.10 K/cumm [facility] ([place]) Neutrophil pct 59.6 % [facility] ([place]) Comment: Interpretive Data Percent cell count reference ranges are not reported, since discordance with absolute values may lead to misinterpretation of CBC data. Current Interpretive Data was last revised on 2018. Imm gran pct 0.6 % [facility] ([place]) Comment: Interpretive Data Percent cell count reference ranges are not reported, since discordance with absolute values may lead to misinterpretation of CBC data. Current Interpretive Data was last revised on 2018. Lymphocyte pct 23.7 % [facility] ([place]) Comment: Interpretive Data Percent cell count reference ranges are not reported, since discordance with absolute values may lead to misinterpretation of CBC data. Current Interpretive Data was last revised on 2018. Monocyte pct 14.0 % [facility] ([place]) Comment: Interpretive Data Percent cell count reference ranges are not reported, since discordance with absolute values may lead to misinterpretation of CBC data. Current Interpretive Data was last revised on 2018. Eosinophil pct 1.8 % [facility] ([place]) Comment: Interpretive Data Percent cell count reference ranges are not reported, since discordance with absolute values may lead to misinterpretation of CBC data. Current Interpretive Data was last revised on 2018. Basophil pct 0.3 % [facility] ([place]) Comment: Interpretive Data Percent cell count reference ranges are not reported, since discordance with absolute values may lead to misinterpretation of CBC data. Current Interpretive Data was last revised on 2018. Blood 04/24/2025 2:56 PM CDT 04/24/2025 3:05 PM CDT us Savana Barclay MD LAB BLOOD ORDERABLES Final Res ult [facility] ([place]) 1 [facility] Department [place] [address] * (ABNORMAL) CBC with auto differential (04/24/2025 2:56 PM CDT) WBC 3.42(L) 3.80 - 9.90 K/cumm Hgb 12.0(L) 13.0 - 17.5 g/dL [facility] ([place]) Hct 38.3(L) 38.9 - 50.3 % [facility] ([place]) Plt 133(L) 150 - 400 K/cumm [facility] ([place]) MPV 10.1 9.1 - 12.3 fL [facility] ([place]) RBC 3.92(L) 4.30 - 5.80 M/cumm [facility] ([place]) MCV 97.7(H) 81.3 - 96.4 fL [facility] ([place]) MCH 30.6 27.1 - 33.3 pg [facility] ([place]) MCHC 31.3(L) 32.3 - 35.7 g/dL [facility] ([place]) RDW CV 13.2 11.1 - 14.9 % [facility] ([place]) RDW SD 47.3 35.7 - 48.1 fL [facility] ([place]) NRBC abs 0.00 0.00 - 0.01 K/cumm [facility] ([place]) Blood 04/24/2025 2:56 PM CDT 04/24/2025 3:05 PM CDT Savana Barclay MD LAB BLOOD ORDERABLES Final Res ult [facility] ([place]) 1 [facility] Department [place] [address] * (ABNORMAL) Basic metabolic panel (04/24/2025 2:56 PM CDT) Sodium 134(L) 135 - 145 mmol/L Potassium, pl 4.2 3.3 - 4.9 mmol/L [facility] ([place]) Chloride 101 97 - 110 mmol/L [facility] ([place]) CO2 22 22 - 32 mmol/L [facility] ([place]) Anion gap 11 2 - 15 mmol/L [facility] ([place]) BUN 8 6 - 25 mg/dL [facility] ([place]) Creatinine 1.01 0.80 - 1.30 mg/dL [facility] ([place]) Glucose 108 70 - 199 mg/dL [facility] ([place]) Comment: Interpretive Data Fasting glucose >/= 126 mg/dl is diagnostic for diabetes. Fasting is defined as no caloric intake for at least 8 hours. Fasting glucose between 100 mg/dl to 125 mg/dl is diagnostic of prediabetes. In a patient with classic symptoms of hyperglycemia or hyperglycemic crisis, a random glucose >/= 200 mg/dl is diagnostic for diabetes. In the absence of unequivocal hyperglycemia, results should be confirmed by repeat testing. The classification and Diagnosis of Diabetes Diabetes Care 2021; 46: S19-S40. Current interpretive data was last revised 2022. Calcium 8.3(L) 8.5 - 10.3 mg/dL [facility] ([place]) Blood 04/24/2025 2:56 PM CDT 04/24/2025 3:05 PM CDT Savana Barclay MD LAB BLOOD ORDERABLES Final Res ult [facility] ([place]) 1 [facility] [place] [address] * Magnesium (04/24/2025 7:25 AM CDT) Magnesium 2.0 1.4 - 2.5 mg/dL Blood 04/24/2025 7:25 AM CDT 04/24/2025 7:43 AM CDT us Michael Archuleta MD LAB BLOOD ORDERABLES Fi nal Result [facility] ([place]) 1 [facility] [place] [address] * Blood culture Blood (04/23/2025 1:54 PM CDT) Report Final Report: No growth Comment:Testing performed by : [facility], [address] [facility] [place] [address] Blood 04/23/2025 1:54 PM CDT 04/23/2025 4:06 PM CDT Narrative [facility] ([place]) - 04/28/2025 7:01 AM CDT From a different site than #1. Collection->Peripheral 1. Blood cultures are incubated for 4 days on a continuously monitored blood culture system. The first report of a negative culture is issued within 24 hours of receipt of the specimen in the laboratory. 2. Positive culture results are reported as soon as they are detected. 3. The most important factor for detection of microbes in the setting of bloodstream infection is the volume of blood submitted for culture. Failure to collect an optimal blood volume can result in false negative blood cultures. 4. For pediatric patients, the recommended blood volume to collect follows a weight based strategy. See the electronic test catalog for collection instructions. 5. For positive blood cultures, a rapid molecular test may be performed for organism identification using the [employer] blood culture identification panel for gram positive (BCID-GP) and gram negative (BCID-GN) organisms. This nucleic acid amplification test detects microbial DNA in positive blood culture broth. This assay has been cleared by the [place] Food and Drug Administration and its performance characteristics have been verified by the [facility]. For questions about this culture, contact the Microbiology Laboratory at [phone]. Interpretive data was last revised on 24. Savana Barclay MD LAB MICROBIOLOGY - GENERAL ORD ERABLES Final Result PATRICIA BETANCOURT ([place]) 1 [facility] [place] [address] * Blood culture Blood (04/23/2025 1:46 PM CDT) Report Final Report: No growth Comment:Testing performed by : [facility], [address] [place]., [address] Blood 04/23/2025 1:46 PM CDT 04/23/2025 4:06 PM CDT Narrative PATRICIA BETANCOURT ([place]) - 04/28/2025 7:01 AM CDT Collection->Peripheral 1. Blood cultures are incubated for 4 days on a continuously monitored blood culture system. The first report of a negative culture is issued within 24 hours of receipt of the specimen in the laboratory. 2. Positive culture results are reported as soon as they are detected. 3. The most important factor for detection of microbes in the setting of bloodstream infection is the volume of blood submitted for culture. Failure to collect an optimal blood volume can result in false negative blood cultures. 4. For pediatric patients, the recommended blood volume to collect follows a weight based strategy. See the electronic test catalog for collection instructions. 5. For positive blood cultures, a rapid molecular test may be performed for organism identification using the willian ePlex blood culture identification panel for gram positive (BCID-GP) and gram negative (BCID-GN) organisms. This nucleic acid amplification test detects microbial DNA in positive blood culture broth. This assay has been cleared by the [place] Food and Drug Administration and its performance characteristics have been verified by the [facility]. For questions about this culture, contact the Microbiology Laboratory at [phone]. Interpretive data was last revised on 24. Savana Barclay MD LAB MICROBIOLOGY - GENERAL ORD ERABLES Final Result Performing Organization Address City/[facility]/ZIP Co de Phone Number PATRICIA BETANCOURT ([place]) 1 [facility] [place] [address] * eGFR (04/23/2025 5:24 AM CDT) Pathologist [facility] eGFR 70 >=60 mL/min/1. 73 m2 Comment: Interpretive Data Reference Interval Normal >/= 90 mL/min/1.73m2 Mildly decreased* 60 - 89 mL/min/1.73m2 Mildly to moderately decreased 45 - 59 mL/min/1.73m2 Moderately to severely decreased 30 - 44 mL/min/1.73m2 Severely decreased 15 - 29 mL/min/1.73m2 Kidney Failure < 15 mL/min/1.73m2 *Relative to young adult level Estimated glomerular filtration rate is determined by the 2020 CKD-EPI equation recommended by the National Kidney Foundation (A Unifying Approach to GFR Estimation: Recommendations of the NKF-ASK Task Force on Reassessing the Inclusion of Race in Diagnosing Kidney Disease, JASN 2020). The CKD-EPI equation should not be used for patients with unstable renal function and has not been validated in children and those over 70. Current interpretive data was last reviewed 2021. Blood 04/23/2025 5:24 AM CDT 04/23/2025 6:21 AM CDT [facility] LAB BLOOD ORDERABLES Dulce l Result PATRICIA BETANCOURT ([place]) 1 [facility] [place] [address] * (ABNORMAL) Differential, auto (04/23/2025 5:24 AM CDT) Pathologist [facility] Neutrophil abs 5.25 1.50 - 6.50 K/cumm Imm gran abs 0.03 0.00 - 0.10 K/cumm [facility] ([place]) Lymphocyte abs 0.66(L) 0.80 - 3.30 K/cumm [facility] ([place]) Monocyte abs 0.42 0.20 - 0.80 K/cumm [facility] ([place]) Eosinophil abs 0.00 0.00 - 0.50 K/cumm [facility] ([place]) Basophil abs 0.02 0.00 - 0.10 K/cumm [facility] ([place]) Neutrophil pct 82.3 % [facility] ([place]) Comment: Interpretive Data Percent cell count reference ranges are not reported, since discordance with absolute values may lead to misinterpretation of CBC data. Current Interpretive Data was last revised on 2018. Imm gran pct 0.5 % [facility] ([place]) Comment: Interpretive Data Percent cell count reference ranges are not reported, since discordance with absolute values may lead to misinterpretation of CBC data. Current Interpretive Data was last revised on 2018. Lymphocyte pct 10.3 % [facility] ([place]) Comment: Interpretive Data Percent cell count reference ranges are not reported, since discordance with absolute values may lead to misinterpretation of CBC data. Current Interpretive Data was last revised on 2018. Monocyte pct 6.6 % [facility] ([place]) Comment: Interpretive Data Percent cell count reference ranges are not reported, since discordance with absolute values may lead to misinterpretation of CBC data. Current Interpretive Data was last revised on 2018. Eosinophil pct 0.0 % [facility] ([place]) Comment: Interpretive Data Percent cell count reference ranges are not reported, since discordance with absolute values may lead to misinterpretation of CBC data. Current Interpretive Data was last revised on 2018. Basophil pct 0.3 % [facility] ([place]) Comment: Interpretive Data Percent cell count reference ranges are not reported, since discordance with absolute values may lead to misinterpretation of CBC data. Current Interpretive Data was last revised on 2018. Blood 04/23/2025 5:24 AM CDT 04/23/2025 6:21 AM CDT us [facility] LAB BLOOD ORDERABLES Dulce sanchez Result PATRICIA [facility] ([place]) 1 [facility] [place] [address] * (ABNORMAL) CBC with auto differential (04/23/2025 5:24 AM CDT) WBC 6.38 3.80 - 9.90 K/cumm Hgb 12.8(L) 13.0 - 17.5 g/dL [facility] ([place]) Hct 39.4 38.9 - 50.3 % [facility] ([place]) Plt 130(L) 150 - 400 K/cumm [facility] ([place]) MPV 9.1 9.1 - 12.3 fL [facility] ([place]) RBC 4.15(L) 4.30 - 5.80 M/cumm [facility] ([place]) MCV 94.9 81.3 - 96.4 fL [facility] ([place]) MCH 30.8 27.1 - 33.3 pg [facility] ([place]) MCHC 32.5 32.3 - 35.7 g/dL [facility] ([place]) RDW CV 13.0 11.1 - 14.9 % [facility] ([place]) RDW SD 45.9 35.7 - 48.1 fL [facility] ([place]) NRBC abs 0.00 0.00 - 0.01 K/cumm [facility] ([place]) Blood 04/23/2025 5:24 AM CDT 04/23/2025 6:21 AM CDT us [facility] LAB BLOOD ORDERABLES Dulce l Result [facility] 1 [facility] [place] [address] * Magnesium (04/23/2025 5:24 AM CDT) Magnesium 1.9 1.4 - 2.5 mg/dL Blood 04/23/2025 5:24 AM CDT 04/23/2025 6:21 AM CDT Michael Archuleta MD LAB BLOOD ORDERABLES Fi nal Result PATRICIA BETANCOURT ([place]) 1 [facility] Department [place] [address] * (ABNORMAL) Comprehensive metabolic panel (04/23/2025 5:24 AM CDT) Sodium 134(L) 135 - 145 mmol/L Potassium, pl 3.8 3.3 - 4.9 mmol/L [facility] ([place]) Chloride 98 97 - 110 mmol/L [facility] ([place]) CO2 22 22 - 32 mmol/L [facility] ([place]) Anion gap 14 2 - 15 mmol/L [facility] ([place]) BUN 12 6 - 25 mg/dL [facility] ([place]) Creatinine 1.15 0.80 - 1.30 mg/dL [facility] ([place]) Glucose 106 70 - 199 mg/dL [facility] ([place]) Comment: Interpretive Data Fasting glucose >/= 126 mg/dl is diagnostic for diabetes. Fasting is defined as no caloric intake for at least 8 hours. Fasting glucose between 100 mg/dl to 125 mg/dl is diagnostic of prediabetes. In a patient with classic symptoms of hyperglycemia or hyperglycemic crisis, a random glucose >/= 200 mg/dl is diagnostic for diabetes. In the absence of unequivocal hyperglycemia, results should be confirmed by repeat testing. The classification and Diagnosis of Diabetes Diabetes Care 202; 46: S19-S40. Current interpretive data was last revised 2022. Calcium 8.4(L) 8.5 - 10.3 mg/dL [facility] ([place]) Bilirubin, total 0.5 0.1 - 1.2 mg/dL [facility] ([place]) Protein, pl 6.7 6.5 - 8.5 g/dL [facility] ([place]) Albumin 3.9 3.5 - 5.0 g/dL [facility] ([place]) Alk phos 51 40 - 130 Units/L [facility] ([place]) ALT 14 7 - 55 Units/L [facility] ([place]) AST 18 10 - 50 Units/L [facility] ([place]) Blood 04/23/2025 5:24 AM CDT 04/23/2025 6:21 AM CDT [facility] LAB BLOOD ORDERABLES Dulce l Result Performing Organization Address [facility] Co de Phone Number PATRICIA BETANCOURT ([place]) 1 [facility] [place] [address] * Influenza A/B, RSV, and COVID-19 PCR Nasopharyngeal (04/22/2025 7:44 PM CDT) COVID-19 RNA Negative Negative Influenza A RNA Negative Negative [facility] ([place]) Influenza B RNA Negative Negative [facility] ([place]) RSV RNA Negative Negative [facility] ([place]) Comment: Interpretive data: Testing performed by [facility]. This test is performed using the [employer] Xpert Xpress CoV-2/Flu/RSV plus assay. This is a multiplex, real- time reverse transcriptase PCR assay intended for the qualitative detection of nucleic acid from SARS-CoV-2, influenza A, influenza B, and respiratory syncytial virus. This assay has been cleared by the [place] Food and Drug administration. The performance characteristics have been verified by the [facility]. Results must be considered in the clinical context, and a negative result does not rule out infection. Interpretive Data last revised 2023 Nasopharyngeal 04/22/2025 7: 44 PM CDT 04/22/2025 7:49 PM CDT Narrative [facility] ([place]) - 04/22/2025 8:29 PM CDT Is the Patient experiencing symptoms consistent with COVID?->Yes [facility] LAB MICROBIOLOGY - GENERA L ORDERABLES Final Result Performing Organization Address [facility]/ZIP Co de Phone Number PATRICIA BETANCOURT ([place]) 1 [facility] [place] [place] [address] * (ABNORMAL) Urinalysis reflex to microscopic and culture Urine (04/22/2025 6:29 PM CDT) Color, ur Yellow Yellow Clarity, ur Clear Clear [facility] ([place]) Specific gravity, ur 1.010 1.003 - 1.030 [facility] ([place]) pH, urine 6.5 [facility] ([place]) Comment: Interpretive Data U rine pH is affected by diet, medications, systemic acid-base disturbances, and renal tubular function. pH may affect urinary stone formation. For example, urine pH below 6.0 may help reduce the tendency for calcium phosphate stones and pH greater than 6.0 may reduce the tendency for uric acid stone formation. Source: [facility] Vitals ([email or web address]) Current Interpretive Data was last revised on 2017 Protein, ur ql 2+(A) Negative [facility] ([place]) Glucose, ur ql Negative Negative [facility] ([place]) Ketones, ur Trace Negative [facility] ([place]) Bilirubin, ur Negative Negative [facility] ([place]) Blood, ur 3+(A) Negative [facility] ([place]) Urobilinogen, ur 2.0(A) <2.0 mg/dL [facility] ([place]) Nitrite, ur Negative Negative [facility] ([place]) Leukocyte esterase, ur Negative Negative [facility] ([place]) UA reflex comment Reflex to microscopic UA will be performed. [facility] ([place]) Urine 04/22/2025 6:29 PM CDT 04/22/2025 6:31 PM CDT Narrative [facility] ([place]) - 04/22/2025 6:49 PM CDT If patient unable to urinate, straight cath us Michael Archuleta MD LAB MICROBIOLOGY - [facility] ORDERABLES Final Result [facility] ([place]) 1 [facility] Department [place] [address] * (ABNORMAL) Urinalysis, microscopic only (04/22/2025 6:29 PM CDT) WBC, ur 0-5 0 - 5 /HPF RBC, ur >50(A) 0 - 2 /HPF [facility] ([place]) Bacteria, ur Trace(A) [facility] ([place]) Mucous, ur Present(A) [facility] ([place]) Culture Reflex Comment Reflex conditions for urine culture (WBC >10) not met. [facility] ([place]) Urine 04/22/2025 6:29 PM CDT 04/22/2025 6:31 PM CDT Michael Archuleta MD LAB URINE ORDERABLES Fi nal Result Performing Organization Address [facility]/ZIP Co de Phone Number PATRICIA BETANCOURT ([place]) 1 [facility] Department of Vitals ([email or web address]) [place] [address] * (ABNORMAL) Urine culture Urine, bladder (04/22/2025 6:29 PM CDT) Report Final Report: Greater than or equal to 100,000 colonies/mL of Enterococcus faecalis Plus growth of clinically insignificant bacterial dre. (.) Comment:Testing performed by : [facility], 1 [facility] [place] [address] Organism ENTEROCOCCUS FAECALIS PATRICIA BETANCOURT ([place]) Organism PLUS GROWTH OF CLINICALLY INSIGNIFICANT DRE. PATRICIA BETANCOURT ([place]) Urine, bladder 04/22/2025 6: 29 PM CDT 04/22/2025 10:15 PM CDT Narrative PATRICIA BETANCOURT ([place]) - 04/25/2025 2:10 PM CDT Indications for Culture:->Urology patient Testing performed by [facility] ([phone]) Organism Antibiotic Method Susceptibility Enterococcus faecalis Ampicillin (KATELYN) INTERPRETATIO N Susceptible Enterococcus faecalis Vancomycin (KATELYN) INTERPRETATIO N Susceptible Enterococcus faecalis Linezolid (KATELYN) INTERPRETATIO N Susceptible Enterococcus faecalis Doxycycline (KATELYN) INTERPRETATIO N Resistant Enterococcus faecalis Nitrofurantoin (KATELYN) INTERPRETAT ION Susceptible us [facility] LAB MICROBIOLOGY - GENERA L ORDERABLES Final Result PATRICIA BETANCOURT ([place]) 1 [facility] Department of Vitals ([email or web address]) [place] [address] * CT Abdomen Pelvis W Contrast (04/22/2025 4:04 PM CDT) Anatomical Region Laterality Modality Body N/A Computed Tomogra phy 04/22/2025 6:15 PM CDT Narrative 04/22/2025 6:17 PM CDT EXAM DESCRIPTION: CT ABDOMEN PELVIS W CONTRAST REASON FOR STUDY: Abdominal pain, acute, nonlocalized, abd pain, nausea and vomiting Patient to ED via [facility] from home for fever. Patient states on he had a cystoscopy and later that night around 2099 he developed a fever. Patient states he has had the fever intermittently since then with Tmax 102.8F. Patient states today he started having nausea and vomiting. Patient diaphoretic on arrival to ED with oral temp 101.8F. Patient reports decreased urine output, pain with urination and dark urine. Denies cough, shortness of breath. TECHNIQUE: CT scan of the abdomen and pelvis performed with intravenous and without oral contrast using helical scanning technique with dynamic intravenous contrast injection. Reconstructed coronal and sagittal MPR images reviewed. All images stored on PACS. Automated exposure control was used as a dose optimization technique for this examination. CONTRAST TYPE/DOSE: 100mL of IOVERSOL 350 MG IODINE/ML INTRAVENOUS SYRINGE injected via intravenous COMPARISON: 06/07/2021 FINDINGS: LOWER CHEST: No significant pulmonary abnormalities. No effusion. LIVER: Normal size. No identified cystic or solid masses. GALLBLADDER: Unremarkable BILE DUCTS: No intrahepatic or extrahepatic ductal dilatation. SPLEEN: Normal size. No focal lesions. PANCREAS: No identified cystic or solid masses. No significant calcifications. No adjacent inflammation or peripancreatic fluid collections. Pancreatic duct not dilated. ADRENALS: Normal. KIDNEYS/URINARY TRACT: No identified significant cystic or solid masses. Several tiny cysts are seen in both kidneys. No visualized stones. No hydronephrosis or hydroureter. Symmetric enhancement. Mild diffuse bladder wall thickening is noted. The bladder is largely decompressed. GI: No dilated bowel loops. No obvious wall thickening. Normal appendix. No significant diverticular disease. PERITONEUM: No ascites or free air. RETROPERITONEUM: No mass or adenopathy. REPRODUCTIVE: Radiation implants of the prostate are noted VASCULATURE: No abdominal aortic aneurysm. MUSCULOSKELETAL: No significant abnormality. Degenerative changes are seen of the lower lumbar spine to a moderate degree OTHER: No other abnormality. IMPRESSION: 1. Mild diffuse bladder wall thickening is noted. Cystitis is a concern. No evidence of perforation is seen.. 2. Radiation implants of the prostate are noted. 3. No acute process is otherwise seen. THIS IS AN ELECTRONICALLY VERIFIED FINAL REPORT 04/22/2025 6:17 PM - Electronically signed by Jg Keller M.D. KH: RYAN Report ID: [id number] Reading Location: [place] [address] Procedure Note Jg Keller MD - 04/22/2025 EXAM DESCRIPTION: CT ABDOMEN PELVIS W CONTRAST REASON FOR STUDY: Abdominal pain, acute, nonlocalized, abd pain, nauseaand vomiting Patient to ED via [facility] from home for fever. Patient states on he had a cystoscopy and later that night around 2099 he developed a fever. Patient states he has had the fever intermittently since then with Tmax 102.8F. Patient states today he started having nausea and vomiting.Patient diaphoretic on arrival to ED with oral temp 101.8F. Patient reportsdecreased urine output, pain with urination and dark urine. Denies cough, shortnessof breath. TECHNIQUE: CT scan of the abdomen and pelvis performed with intravenousand without oral contrast using helical scanning technique with dynamic intravenous contrast injection. Reconstructed coronal and sagittal MPRimages reviewed. All images stored on PACS. Automated exposure control was usedas a dose optimization technique for this examination. CONTRAST TYPE/DOSE: 100mL of IOVERSOL 350 MG IODINE/ML INTRAVENOUSSYRINGE injected via intravenous COMPARISON: 06/07/2021 FINDINGS: LOWER CHEST: No significant pulmonary abnormalities. No effusion. LIVER: Normal size. No identified cystic or solid masses. GALLBLADDER: Unremarkable BILE DUCTS: No intrahepatic or extrahepatic ductal dilatation. SPLEEN: Normal size. No focal lesions. PANCREAS: No identified cystic or solid masses. No significant calcifications. No adjacent inflammation or peripancreatic fluidcollections. Pancreatic duct not dilated. ADRENALS: Normal. KIDNEYS/URINARY TRACT: No identified significant cystic or solid masses. Several tiny cysts are seen in both kidneys. No visualized stones. No hydronephrosis or hydroureter. Symmetric enhancement. Mild diffusebladder wall thickening is noted. The bladder is largely decompressed. GI: No dilated bowel loops. No obvious wall thickening. Normalappendix. No significant diverticular disease. PERITONEUM: No ascites or free air. RETROPERITONEUM: No mass or adenopathy. REPRODUCTIVE: Radiation implants of the prostate are noted VASCULATURE: No abdominal aortic aneurysm. MUSCULOSKELETAL: No significant abnormality. Degenerative changes areseen of the lower lumbar spine to a moderate degree OTHER: No other abnormality. IMPRESSION: 1. Mild diffuse bladder wall thickening is noted. Cystitis is aconcern. No evidence of perforation is seen.. 2. Radiation implants of the prostate are noted. 3. No acute process is otherwise seen. THIS IS AN ELECTRONICALLY VERIFIED FINAL REPORT 04/22/2025 6:17 PM - Electronically signed by Jg Keller M.D. KH: RYAN Report ID: [id number] Reading Location: [place] [address] [facility] PROCEDURES Final R esult * (ABNORMAL) Blood culture Blood Peripheral (04/22/2025 3:44 PM CDT) Direct Specimen Exam Molecular Analysis: Serratia marcescens detected by willian ePlex BCID-GN panel. This test does not exclude the possibility of a mixed bacterial infection. Notification of: Serratia marcescens called to and read back by: Mary Simmons [place] [phone] on 04/23/2025 15:30:19 by: Jacob Ruffin [place] Results phoned to and read back by: DENAE Acosta on 04/23/2025 15:39:06 by: Mary Simmons Comment:Testing performed by : [facility], [address] [place] [address], [place]., [address] Direct Specimen Exam Stain: Gram Negative Bacilli Time to culture positivity (aerobic media): 18.8 hours Notification of: Gram Negative Bacilli called to and read back by: Mary Simmons MT ([phone]) on 04/23/2025 13:12 by: Bre Montana MT Results phoned to and read back by: DENAE Acosta on 04/23/2025 13:14:37 by: Mary GOMEZ [facility] ([place]) Comment:Testing performed by : [facility], 1 [facility], [place]., [address] Report Final Report: Serratia marcescens (.) [facility] ([place]) Comment:Testing performed by : [facility], [address] [place]., [address] Organism SERRATIA MARCESCENS [facility] ([place]) Blood (Peripheral) 04/22/2025 3:44 PM CDT 04/22/2025 5:46 PM CDT Narrative [facility] ([place]) - 04/28/2025 2:29 PM CDT From a different site than #1. Draw Blood cultures before administration of Antibiotics Collection->Peripheral 1. Blood cultures are incubated for 4 days on a continuously monitored blood culture system. The first report of a negative culture is issued within 24 hours of receipt of the specimen in the laboratory. 2. Positive culture results are reported as soon as they are detected. 3. The most important factor for detection of microbes in the setting of bloodstream infection is the volume of blood submitted for culture. Failure to collect an optimal blood volume can result in false negative blood cultures. 4. For pediatric patients, the recommended blood volume to collect follows a weight based strategy. See the electronic test catalog for collection instructions. 5. For positive blood cultures, a rapid molecular test may be performed for organism identification using the [employer]Plex blood culture identification panel for gram positive (BCID-GP) and gram negative (BCID-GN) organisms. This nucleic acid amplification test detects microbial DNA in positive blood culture broth. This assay has been cleared by the [place] Food and Drug Administration and its performance characteristics have been verified by the [facility]. For questions about this culture, contact the Microbiology Laboratory at [phone]. Interpretive data was last revised on 24. Organism Antibiotic Method Susceptibility Serratia marcescens Ampicillin INTERPRETATION Resistant Serratia marcescens Cefazolin INTERPRETATION Resistant Serratia marcescens Gentamicin INTERPRETATION Susceptible Serratia marcescens Ampicillin with Sulbactam INTERPRE TATION Resistant Serratia marcescens Trimethoprim with Sulfamethoxazole INTERPRETATION Susceptible Serratia marcescens Meropenem INTERPRETATION Susceptible Serratia marcescens Cefepime INTERPRETATION Susceptible Serratia marcescens Ciprofloxacin INTERPRETATION Susceptible Serratia marcescens Ceftazidime INTERPRETATION Susceptible Serratia marcescens Ceftriaxone INTERPRETATION Susceptible Serratia marcescens Piperacillin/Tazobactam INTERPRETA TION Susceptible us [facility] LAB MICROBIOLOGY - GENERA L ORDERABLES Final Result PATRICIA BETANCOURT ([place]) 1 [facility] Department of Vitals ([email or web address]) [place] [address] * Sepsis Lactate w/ Reflex (04/22/2025 3:22 PM CDT) Sepsis Lactate 1.6 0.7 - 2.0 mmol/L Blood 04/22/2025 3:22 PM CDT 04/22/2025 3:28 PM CDT us Michael Archuleta MD LAB BLOOD ORDERABLES Fi nal Result Performing Organization Address City/[facility]/ZIP Co de Phone Number PATRICIA BETANCOURT ([place]) [address] [place] [address] of Vitals ([email or web address]) [place] [address] * (ABNORMAL) eGFR (04/22/2025 3:22 PM CDT) eGFR 54(L) >=60 mL/min/1. 73 m2 Comment: Interpretive Data Reference Interval Normal >/= 90 mL/min/1.73m2 Mildly decreased* 60 - 89 mL/min/1.73m2 Mildly to moderately decreased 45 - 59 mL/min/1.73m2 Moderately to severely decreased 30 - 44 mL/min/1.73m2 Severely decreased 15 - 29 mL/min/1.73m2 Kidney Failure < 15 mL/min/1.73m2 *Relative to young adult level Estimated glomerular filtration rate is determined by the 2020 CKD-EPI equation recommended by the National Kidney Foundation (A Unifying Approach to GFR Estimation: Recommendations of the NKF-ASK Task Force on Reassessing the Inclusion of Race in Diagnosing Kidney Disease, JASN 2020). The CKD-EPI equation should not be used for patients with unstable renal function and has not been validated in children and those over 70. Current interpretive data was last reviewed 2021. Blood 04/22/2025 3:22 PM CDT 04/22/2025 3:30 PM CDT us Michael Archuleta MD LAB BLOOD ORDERABLES Fi nal Result [facility] ([place]) 1 [facility] Department [place] [address] * (ABNORMAL) Differential, auto (04/22/2025 3:22 PM CDT) Neutrophil abs 10.70(H) 1.50 - 6.50 K/cumm Imm gran abs 0.09 0.00 - 0.10 K/cumm [facility] ([place]) Lymphocyte abs 0.92 0.80 - 3.30 K/cumm [facility] ([place]) Monocyte abs 0.61 0.20 - 0.80 K/cumm [facility] ([place]) Eosinophil abs 0.22 0.00 - 0.50 K/cumm [facility] ([place]) Basophil abs 0.03 0.00 - 0.10 K/cumm [facility] ([place]) Neutrophil pct 85.1 % [facility] ([place]) Comment: Interpretive Data Percent cell count reference ranges are not reported, since discordance with absolute values may lead to misinterpretation of CBC data. Current Interpretive Data was last revised on 2018. Imm gran pct 0.7 % [facility] ([place]) Comment: Interpretive Data Percent cell count reference ranges are not reported, since discordance with absolute values may lead to misinterpretation of CBC data. Current Interpretive Data was last revised on 2018. Lymphocyte pct 7.3 % [facility] ([place]) Comment: Interpretive Data Percent cell count reference ranges are not reported, since discordance with absolute values may lead to misinterpretation of CBC data. Current Interpretive Data was last revised on 2018. Monocyte pct 4.9 % [facility] ([place]) Comment: Interpretive Data Percent cell count reference ranges are not reported, since discordance with absolute values may lead to misinterpretation of CBC data. Current Interpretive Data was last revised on 2018. Eosinophil pct 1.8 % [facility] ([place]) Comment: Interpretive Data Percent cell count reference ranges are not reported, since discordance with absolute values may lead to misinterpretation of CBC data. Current Interpretive Data was last revised on 2018. Basophil pct 0.2 % [facility] ([place]) Comment: Interpretive Data Percent cell count reference ranges are not reported, since discordance with absolute values may lead to misinterpretation of CBC data. Current Interpretive Data was last revised on 2018. Blood 04/22/2025 3:22 PM CDT 04/22/2025 3:28 PM CDT us Michael Archuleta MD LAB BLOOD ORDERABLES nal Result [facility] ([place]) 1 [facility] [place] [address] * (ABNORMAL) CBC with auto differential (04/22/2025 3:22 PM CDT) WBC 12.57(H) 3.80 - 9.90 K/cumm Hgb 14.7 13.0 - 17.5 g/dL [facility] ([place]) Hct 43.6 38.9 - 50.3 % [facility] ([place]) Plt 179 150 - 400 K/cumm [facility] ([place]) MPV 9.1 9.1 - 12.3 fL [facility] ([place]) RBC 4.69 4.30 - 5.80 M/cumm [facility] ([place]) MCV 93.0 81.3 - 96.4 fL [facility] ([place]) MCH 31.3 27.1 - 33.3 pg [facility] ([place]) MCHC 33.7 32.3 - 35.7 g/dL [facility] ([place]) RDW CV 12.9 11.1 - 14.9 % [facility] ([place]) RDW SD 43.9 35.7 - 48.1 fL [facility] ([place]) NRBC abs 0.00 0.00 - 0.01 K/cumm [facility] ([place]) Morphologic Screen Results confirmed by manual morphology review. [facility]) Blood 04/22/2025 3:22 PM CDT 04/22/2025 3:28 PM CDT Michael Archuleta MD LAB BLOOD ORDERABLES Fi nal Result [facility] ([place]) 1 [facility] [place] [address] * Blood culture Blood Peripheral (04/22/2025 3:22 PM CDT) Report Final Report: No growth Comment:Testing performed by : [facility], 1 [facility] [place]., [address] Blood (Peripheral) 04/22/2025 3:22 PM CDT 04/22/2025 5:46 PM CDT Narrative [facility] ([place]) - 04/27/2025 7:00 AM CDT Draw Blood cultures before administration of Antibiotics Collection->Peripheral 1. Blood cultures are incubated for 4 days on a continuously monitored blood culture system. The first report of a negative culture is issued within 24 hours of receipt of the specimen in the laboratory. 2. Positive culture results are reported as soon as they are detected. 3. The most important factor for detection of microbes in the setting of bloodstream infection is the volume of blood submitted for culture. Failure to collect an optimal blood volume can result in false negative blood cultures. 4. For pediatric patients, the recommended blood volume to collect follows a weight based strategy. See the electronic test catalog for collection instructions. 5. For positive blood cultures, a rapid molecular test may be performed for organism identification using the willian ePlex blood culture identification panel for gram positive (BCID-GP) and gram negative (BCID-GN) organisms. This nucleic acid amplification test detects microbial DNA in positive blood culture broth. This assay has been cleared by the [place] Food and Drug Administration and its performance characteristics have been verified by the [facility]. For questions about this culture, contact the Microbiology Laboratory at [phone]. Interpretive data was last revised on 24. [facility] LAB MICROBIOLOGY - GENERA L ORDERABLES Final Result [facility] ([place]) 1 [facility] [place] [address] * (ABNORMAL) Comprehensive metabolic panel (04/22/2025 3:22 PM CDT) Sodium 135 135 - 145 mmol/L Potassium, pl 3.5 3.3 - 4.9 mmol/L [facility] ([place]) Chloride 99 97 - 110 mmol/L [facility] ([place]) CO2 21(L) 22 - 32 mmol/L [facility] ([place]) Anion gap 16(H) 2 - 15 mmol/L [facility] ([place]) BUN 14 6 - 25 mg/dL [facility] ([place]) Creatinine 1.42(H) 0.80 - 1.30 mg/dL [facility] ([place]) Glucose 160 70 - 199 mg/dL [facility] ([place]) Comment: Interpretive Data Fasting glucose >/= 126 mg/dl is diagnostic for diabetes. Fasting is defined as no caloric intake for at least 8 hours. Fasting glucose between 100 mg/dl to 125 mg/dl is diagnostic of prediabetes. In a patient with classic symptoms of hyperglycemia or hyperglycemic crisis, a random glucose >/= 200 mg/dl is diagnostic for diabetes. In the absence of unequivocal hyperglycemia, results should be confirmed by repeat testing. The classification and Diagnosis of Diabetes Diabetes Care 202; 46: S19-S40. Current interpretive data was last revised 2022. Calcium 8.9 8.5 - 10.3 mg/dL [facility]) Bilirubin, total 0.8 0.1 - 1.2 mg/dL [facility] ([place]) Protein, pl 7.5 6.5 - 8.5 g/dL [facility] ([place]) Albumin 4.2 3.5 - 5.0 g/dL [facility] ([place]) Alk phos 59 40 - 130 Units/L [facility] ([place]) ALT 15 7 - 55 Units/L [facility] ([place]) AST 15 10 - 50 Units/L [facility] ([place]) Blood 04/22/2025 3:22 PM CDT 04/22/2025 3:28 PM CDT us Michael Stew Archuleta MD LAB BLOOD ORDERABLES Fi nal Result [facility] ([place]) 1 [facility] [place] [address] * XR Chest 1 Vw Portable (04/22/2025 3:15 PM CDT) Anatomical Region Laterality Modality Body, Chest N/A Computed Radiogr aphy 04/22/2025 4:49 PM CDT Narrative 04/22/2025 4:50 PM CDT EXAM DESCRIPTION: XR CHEST 1 VIEW REASON FOR STUDY: fever Patient to ED via [facility] from home for fever. Patient states on he had a cystoscopy and later that night around 2099 he developed a fever. Patient states he has had the fever intermittently since then with Tmax 102.8F. Patient states today he started having nausea and vomiting. Patient diaphoretic on arrival to ED with oral temp 101.8F. Patient reports decreased urine output, pain with urination and dark urine. Denies cough, shortness of breath. TECHNIQUE: Single radiographic view(s) of the chest. COMPARISON: 11/30/2024 FINDINGS: LUNGS: No focal opacity, pleural effusion, or pneumothorax. HEART/MEDIASTINUM: Cardiac silhouette normal in size. Mediastinal and hilar contours appear normal. LINES/TUBES: Left-sided pacing device is noted similar to previous. No pneumothorax is seen BONES: Left shoulder replacement is noted. IMPRESSION: No acute cardiopulmonary abnormality. THIS IS AN ELECTRONICALLY VERIFIED FINAL REPORT 04/22/2025 4:50 PM - Electronically signed by Jg Keller M.D. KH: RYAN Report ID: [id number] Reading Location: [place] [address] Procedure Note Jg Keller MD - 04/22/2025 EXAM DESCRIPTION: XR CHEST 1 VIEW REASON FOR STUDY: fever Patient to ED via [facility] from home for fever. Patient states onThursday he had a cystoscopy and later that night around 2100 he developed a fever. Patient states he has had the fever intermittently since then with Tmax 102.8F. Patient states today he started having nausea and vomiting.Patient diaphoretic on arrival to ED with oral temp 101.8F. Patient reportsdecreased urine output, pain with urination and dark urine. Denies cough, shortnessof breath. TECHNIQUE: Single radiographic view(s) of the chest. COMPARISON: 11/30/2024 FINDINGS: LUNGS: No focal opacity, pleural effusion, or pneumothorax. HEART/MEDIASTINUM: Cardiac silhouette normal in size. Mediastinal andhilar contours appear normal. LINES/TUBES: Left-sided pacing device is noted similar to previous. No pneumothorax is seen BONES: Left shoulder replacement is noted. IMPRESSION: No acute cardiopulmonary abnormality. THIS IS AN ELECTRONICALLY VERIFIED FINAL REPORT 04/22/2025 4:50 PM - Electronically signed by Jg Keller M.D. KH: RYAN Report ID: [id number] Reading Location: [place] [address] [facility] IMG XR PROCEDURES Final R esult from Last 3 Months Insurance [facility] HMO/PPO Address[facility] [address] [place] [address] [facility] Advance Directives For more information, please contact: [phone] * Full Code (Latest Code Status on File) Date Activated Date Inactivated Comments 04/22/2025 8:34 PM 04/25/2025 6:46 PM * Full Code Date Activated Date Inactivated Comments 04/22/2025 8:34 PM 04/22/2025 8:34 PM * Full Code Date Activated Date Inactivated Comments 11/29/2019 11:12 AM 11/30/2019 7:47 PM Care Teams Junior Art Director Relationship Specialty Start Date End Date Man Damon MD 2 [facility] JANELLE ELVIRA [facility] [address] [place] [address] PCP - General Family Medicine 04/11/19 Ozzy Ramirez NP 4 [facility] [address] [place] [address] Nurse Practitioner Nurse Practitioner 11/30/19 Laverne Shelton, PT Physical Therapist Physical Therapy 05/17/25 Jg Shelton, PT Physical Therapist Physical Therapy 06/09/25
--- OUTSIDE RECORDS SUMMARY | 2025-07-03 01:16 | XMS_ITS | Clinical Summary ---
Author Organization [facility] Address [address] [place] [address] Phone Care Team Providers Care Instructional Technology Director Name Role Phone Man Damon MD Primary Care Provider [phone] Oliverio Marion MD Unavailable Gideon Freeman MD Unavailable Allergies No known active allergies Medications lisinopril (PRINIVIL, ZESTRIL) 20 MG TabletIndicatio ns:Essential hypertension TAKE 1 TABLET BY MOUTH EVERY DAY 30 Tablet 5 07/30/20 22 Active Additional Information Patient taking differently: 40 mg Oral DAILY, Reported on 05/30/2025 metoprolol tartrate (LOPRESSOR) 25 MG Tablet Take 12.5 mg by mouth 2 times daily. Active rosuvastatin (CRESTOR) 40 MG Tablet Take 40 mg by mouth daily. 04/28/20 24 Active aspirin 81 MG Chewable Tablet Take 81 mg by mouth daily. Active buPROPion (WELLBUTRIN) 150 MG XL tabletIndicatio ns:Major Depressive Disorder Take 1 Tablet by mouth every morning. Indications: Major Depressive Disorder 90 Tablet 05/02/20 25 Active escitalopram (LEXAPRO) 20 MG Tablet TAKE 1 TABLET BY MOUTH EVERY DAY 90 Tablet 1 06/21/20 25 Active escitalopram (LEXAPRO) 20 MG Tablet Take 1 Tablet by mouth daily. 90 Tablet 3 06/30/20 24 025 Discontinued Trospium Chloride 60 MG CAPSULE SR 24 HR Take 1 Capsule by mouth daily for 30 days. 30 Capsule 05/17/20 25 025 Active Problems Problem Noted Date Diagnosed Date Orthostatic hypotension 03/04/2016 OA (osteoarthritis) GERD (gastroesophageal reflux disease) Anxiety Encounters Date Type Department Care Team Description 06/28/2025 Refill [facility] UROLOGY #[address] [place] [address] Gideon Freeman MD Medication Refill 06/21/2025 Refill [facility] [address] [place] [address] Man Damon MD Medication Refill 05/30/2025 10:15 AM CDT Office Visit [facility] [address] [place] [address] Man Damon MD Reactive depression (Primary Dx) Discharge Disposition: Discharged to home or Selfcare 05/29/2025 Travel 05/26/2025 Results Follow-Up [facility] [address] [place] [address] Getachew Rao APRN, [employer] PAIN CONSULT 05/17/2025 Refill [facility] UROLOGY #[address] [place] [address] Gideon Freeman MD Medication Refill 05/02/2025 9:30 AM CDT Office Visit [facility] [address] [place] [address] Man Damon MD Essential hypertension (Primary Dx); Reactive depression Discharge Disposition: Discharged to home or Selfcare 05/02/2025 Travel 04/19/2025 9:30 AM CDT Procedure Visit [facility] UROLOG[facility] #[address] [place] [address] Gideon Freeman MD Urinary frequency (Primary Dx); Microscopic hematuria Discharge Disposition: Discharged to home or Selfcare 04/17/2025 Travel from Last 3 Months Immunizations Immunization Administration Dates Next Due Covid-19, Mrna, Lnp-s, Pf, 30 Mcg/0.3 Ml Dose (P elmirazer) 02/21/2021,01/31/2021 Family History Medical History Relation Name Comments Arthritis Brother Enmanuel Hypertension Brother Enmanuel High blood pres sure No Known Problems Daughter Cancer Father Bill Colon and throa t cancer Colon Cancer Father Bill No Known Problems Maternal Grandfather No Known Problems Maternal Grandmother Hypertension Mother Shadia High blood pres sure Cancer Paternal Aunt Monica [place] Colon cancer Colon Cancer Paternal Aunt Monica [place] No Known Problems Paternal Grandfather Alzheimer's Disease Paternal Grandmother Dementia Paternal Grandmother Arthritis Sister Sayra Hypertension Sister Sayra Relation Name Status Comments Brother Enmanuel Alive Daughter Alive Father Jerad Maternal Grandfather Maternal Grandmother Mother Shadia Paternal Aunt Monica [place] Paternal Grandfather Paternal Grandmother Sister Sayra Alive Social History Tobacco Use Types Packs/Day Years Used Date Smoking Tobacco: Never Smokeless Tobacco: Former Chew Quit: 2023 Tobacco Cessation:Counseling Given: No Alcohol Use Standard Drinks/Week Comments Yes 10 (1 standard drink = 0.6 oz pu re alcohol) socially 10 beers a week [facility] Utilities Answer Date Recorded In the past 12 months has th e electric, gas, oil, or water company threatened to shut off services in your [...] often do you attend chur ch or pentecostalism services? Never 06/28/2024 Do you belong to any clubs o r organizations such as pentecostal groups, unions, fraternal or athletic groups, or [...] Total Score - Questions 1-9 0 05/03 [facility] - Occupational Stress [...] any time in the past 12 m [facility], were you homeless or living in a mcc (including now)? 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 Not on file Not on file Last Filed Vital Signs Vital Sign Reading Time Taken Comments Blood Pressure 134/82 05/30/2025 10:17 AM CDT Pulse 72 05/30/2025 10:17 AM CDT Temperature 36.7 C (98.1 F) 05/30/2025 10:17 AM CDT Respiratory Rate 16 05/30/2025 10:1 7 AM CDT Oxygen Saturation 95% 05/30/2025 10: 17 AM CDT Inhaled Oxygen Concentration - - Weight 104.6 kg (230 lb 11.2 oz) 2024 10:17 AM CDT Height 170.2 cm (5' 7) 05/30/2025 10:1 7 AM CDT Body Mass Index 36.13 05/30/2025 10:17 AM CDT Plan of Treatment Upcoming Encounters Date Type Department Care Team (Late st Contact Info) Description 07/04/2025 2:30 PM CDT Office Visit [facility] [address] [place] [address] Man Damon MD #[address] [address] 09/27/2025 11:00 AM [employer] Office Visit [facility] [address] [place] [address] Man Damon MD #[address] [address] 11/08/2025 9:30 AM [employer] INTER[employer] Office Visit [facility] #2 [place] [address] Gideon Freeman MD [address] [place] [address] [place] [address] Health Maintenance Due Date Last Done Comments TdaP Immunization 1957 Cologuard 2002 Immunochemical Fecal Occult Blood 2002 Zoster Immunization (1 of 2) 2007 SARS-COV-2 Immunization (3 - season) 2024 02/21/2021, 01/31/2021 Influenza Immunization (#1) 2025 Pneumococcal Immunization (50+ years) (1 of 1 - PCV) 10/18/2025 Postponed fro m 2007 (Patient Temporarily Declines) Colonoscopy 07/31/2027 07/31/2022, 07/31/2022, 12/31/2016 Colorectal Cancer Screening 07/31/2027 Respiratory Syncytial Virus (RSV) Immunization (Adult) (1 - 1-dose 75+ series) 2032 Hepatitis C Virus (HCV) Screening Completed 06/04/2022, 09/21/2008 PSA Discussion Completed 07/06/2024, 08/20/2020, 03/06/2016 Hepatitis B Immunization Aged Out No longer eligible based on patient's age to complete this topic Human Papillomavirus (HPV) Immunization Aged Out No longer eligible b ased on patient's age to complete this topic Meningococcal Immunization (ACWY) Aged Out No longer eligible b ased on patient's age to complete this topic Rotavirus Immunization Aged Out No lo nger eligible based on patient's age to complete this topic Medical Devices Implanted Type Area Efficiency Miner Blasting Device Identifier Shelf Expiration Date Model / Serial / Lot Clip 360 Resolution 235cm - [id number] Implanted:Qty: 1 on 07/31/2022 by Oliverio Marion MD at [facility] IMPLANT [employer] 03/05/2024 [id number] / / [id number] Kit Endoscopic Urolift 2 Implant Cartridge Handle - [id number] Implanted:Qty: 1 on 09/14/2024 by Gideon Freeman MD at [facility] IMPLANT [employer] 09/15/2025 UL2-CHK / UL2-CHK / [id number] Implant Urological Urolift 2 Male Cartridge Latex Free Sterile Single Use - [id number] Implanted:Qty: 3 on 09/14/2024 by Gideon Freeman MD at [facility] IMPLANT N/A: Prostate [employer] 07/07/2025 UL2-C / UL2-C / [id number] Procedures Procedure Name Priority Date/Time Associated Diagnosis Comments PAIN CONSULT 06/08/2025 12:00 AM CDT PAIN CONSULT 05/30/2025 12:00 AM CDT PAIN CONSULT 05/22/2025 12:00 AM CDT POCT UA AUTOMATED W/O MICRO Routine 04/19/2025 10:35 AM CDT Urinary frequency Microscopic hematuria CYSTOURETHROSCOPY Routine 04/19/2025 9:3 0 AM CDT Urinary frequency PSA SCREEN Routine 07/06/2024 10:11 AM CDT Prostate cancer screening HEPATITIS PANEL ACUTE (AHP) Routine 06/04/2022 10:18 AM CDT Essential hypertension Arthralgia, unspecified joint Need for hepatitis C screening test from Last 3 Months or Most Recently Relevant to Health Maintenance Results * PAIN CONSULT (06/08/2025 12:00 AM CDT) Only the most recent of3 resultswithin the time period is included. 06/08/2025 us Getachew Rao POLICE GUARD, [employer] GENERIC SCAN ORD ERS CONSULT Final Result SCAN * (ABNORMAL) POCT UA AUTOMATED W/O MICRO (04/19/2025 10:35 AM CDT) POC UA SPECIFIC GRAVITY 1.030 URINE PH 6.0 5.0 - 9.0 POC URINE LEUKOCYTES Negative Negative Peri/uL POC URINE NITRITE Negative Negative POC URINE PROTEIN Negative Negative mg/dL POC URINE GLUCOSE Norm Negative, Norm mg/dL POC URINE KETONE Negative Negative mg/dL POC URINE UROBILINOGEN Norm Norm, 0.2 E.U./dL (mg/dL), 1 E.U./dL (mg/dL) POC URINE BILIRUBIN Negative Negative mg/dL POC URINE BLOOD INSTRUMENT 50 Omar/uL(A) Negative Omar/uL POC URINE COLOR Dark Yellow POC URINE CLARITY Clear Urine 04/19/2025 10:3 5 AM CDT Gideon Freeman MD POINT OF CARE TESTING (MANUAL) F inal Result * CYSTOURETHROSCOPY (04/19/2025 9:30 AM CDT) Narrative Gideon Freeman MD - 04/19/2025 9:30 AM CDT Gideon Freeman MD 04/19/2025 1:42 PM Male Cysto - CYSTOSCOPY: Details of the procedure as well as the potential risks were discussed with the patient, including but not limited to the risks of bleeding, infection, damage to the bladder, and voiding dysfunction. He seemed to understand the risks and details of the procedure. All questions were answered to his satisfaction and he wished to proceed. Details of Procedure: Flexible cystourethroscopy was performed under sterile conditions. The bladder was systematically surveyed. Findings below: Bladder: No stones no masses no signs of any foreign bodies on retroflexion Ureteral orifice: Orthotopic Prostate: Relatively open decent splaying of the prostatic fossa closure towards bladder neck Urethra: Normal Impression: No cystoscopic explanation patient's urinary symptoms Patient received nothing as prophylaxis. Tolerated well with no reactions us Gideon Freeman MD [place] - SURGERY Final Result * PSA SCREEN (07/06/2024 10:11 AM CDT) PSA SCREEN, TOTAL 1.09 <4.00 ng/mL 07/06/2024 12:47 PM CDT [facility] Blood Venipuncture / Unknown 07/06/2024 10:11 AM CDT 07/06/2024 11:42 AM CDT Narrative [facility] - 07/06/2024 12:47 PM CDT The ALINITY Total PSA assay is a Chemiluminescent Microparticle Immunoassay (CMIA) for the quantitative determination of total PSA (both free PSA and PSA complexed to [id number]) in human serum. Total PSA values obtained with different assay methods, including Lee PSA assays, cannot be used interchangeably. us Gideon Freeman MD CHEMISTRY ORDERABLES Final Resul t [facility] [place] [address] * HEPATITIS PANEL ACUTE (AHP) (06/04/2022 10:18 AM CDT) HEPATITIS A IGM ANTIBODY NON DETECTED NON DETECTED [place] [id number] 06/04/2022 9:26 PM CDT [facility] Comment: IGM Antibodies to HAV not detected. Does not exclude early acute or recovered HAV infection. HEP B CORE AB (IGM) NON DETECTED NON DETECTED [address] 06/04/2022 9:26 PM CDT [facility] Comment:IGM anti-HBC not det ected. Does not exclude the possibility of exposure to or infection with HBV. HEPATITIS B SURFACE ANTIGEN NON DETECTED NON DETECTED [address] 06/04/2022 9:26 PM CDT [facility] Comment:A nonreactive test r esult does not exclude the possibility of exposure to or infection with Hepatitis B virus. A nonreactive test result in individuals with prior exposure to hepatitis B may be due to antigen levels below the detection limit of this assay or lack of antigen reactivity to the antibodies in this assay. hepatitis C antibody 0.07 <1 S/CO [place] [id number] B 06/04/2022 9:26 PM CDT [facility] Comment: Signal/Cutoff ratio < 0.79 is Nondetected Signal/Cutoff ratio 0.80-0.99 is Grayzone Signal/Cutoff ratio > 0.99 is Detected Supplemental assays are recommended if signal/cutoff ratio is >/=1.00. Signal/cutoff ratio result >/= 5.00 is 97% predictive of positivity for recombinant immunoblot assay (RIBA) and will be reported to the [place] Department of Public Health as required. Blood Venipuncture / Unknown 06/04/2022 10:18 AM CDT 06/04/2022 10:27 AM CDT us Man Damon MD HEMATOLOGY ORDERABLES Final R esult [facility] [address] [place] [address], [place] from Last 3 Months or Most Recently Relevant to Health Maintenance Insurance MEDICARE C [facility] Care Teams Instructional Technology Director Relationship Specialty Start Date End Date Man Damon MD #[address] [address] PCP - General Family Medicine 03/29/19 Oliverio Marion MD #2 [facility] [address] [place] [address] Consulting Physician Colon and Rectal Surgery 06/30/22 Gideon Freeman MD #2 [facility] [address] [place] [address] Consulting Physician Urology 07/06/24
--- OUTSIDE RECORDS SUMMARY | 2025-07-03 01:16 | XMS_ITS | Encounter Summary ---
Author Organization [facility] Address [address] [place] [address] Phone Care Team Providers Care Service Parts Driver Name Role Phone Man Damon MD Primary Care Provider Oliverio Marion MD Unavailable Gideon Freeman MD Unavailable Encounter Details Date Type Department Care Team (Late st Contact Info) Description 05/26/2025 Results Follow-Up [facility] - Family Medicine [facility] [address] [facility] [place] [id number] Getachew Rao, WAD PRINTING MACHINE OPERATOR, HYDRO PLANT SITE MANAGER [address] [address] PAIN CONSULT Social History Tobacco Use Types Packs/Day Years Used Date Smoking Tobacco: Never Smokeless Tobacco: Former Chew Quit: 2023 Alcohol Use Standard Drinks/Week Comments Yes 10 (1 standard drink = 0.6 oz pu re alcohol) socially 10 beers a week [facility] Utilities Answer Date Recorded In the past 12 months has [facility] [employer], gas, oil, or water [employer] threatened to shut off services in your [...] often do you attend chur ch or orthodoxy services? Never 06/28/2024 Do you belong to any clubs o r organizations such as advent groups, unions, fraternal or athletic groups, or [...] Total Score - Questions 1-9 0 05/03 [facility] - Occupational Stress [...] any time in the past 12 m [facility], were you homeless or living in a residential (including now)? 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 Not on file Not on file documented as of this encounter Plan of Treatment Upcoming Encounters Date Type Department Care Team (Late st Contact Info) Description 07/04/2025 2:30 PM CDT Office Visit [facility] [address] [place] [address] Man Damon MD [address] [address] 09/27/2025 11:00 AM CONSULTING IT ARCHITECT Office Visit [facility] [address] [place] [address] Man Damon MD [address] [address] 11/08/2025 9:30 AM CONSULTING IT ARCHITECT Office Visit [facility] [place] [address] Gideon Freeman MD [address] [facility] [address] [place] [address] documented as of this encounter Visit Diagnoses Not on filedocumented in this encounter Additional Health Concerns Assessment Noted Time PHQ-9 Depression Total Score: 0 08/30/20 24 2:25 PM CDT documented as of this encounter Care Teams Service Parts Driver Relationship Specialty Start Date End Date Man Damon MD [address] [facility] [address] [place] [address] PCP - General Family Medicine 03/29/19 Oliverio Marion MD [address] [facility] [address] [place] [address] Consulting Physician Colon and Rectal Surgery 06/30/22 Gideon Freeman MD [facility] [facility] [address] [place] [address] Consulting Physician Urology 07/06/24 documented as of this encounter
[2025-07-03] MEDS: SODIUM CHLORIDE 0.9% IV 1,000 ML 999 ML IV CONT (02:35)
[2025-07-03] MEDS: PROPOFOL IV EMULSION 200 MG/20 ML VIAL 100 MG IV PUSH (02:41)
--- NOTE | 2025-07-03 03:11 | ED.GENADULT ---
HPI - General Adult General Chief complaint: Fall Stated complaint: right shoulder and arm Time Seen by Provider: 07/03/25 01:54 History of Present Illness HPI narrative: Patient is 69-year-old gentleman presents emergency department with chief complaint of right shoulder dislocation patient reports he tripped and landed on his arm the patient reports he had some tingling in his arm reports that he has prior history of a pacemaker and reports that he did have some alcoholic beverages this evening. Patient reports no head injury denies loss of consciousness. Related Data Allergies Allergy/AdvReac Type Severity Reaction Status Date / Time No Known Allergies Allergy Verified 07/03/25 02:06 Review of Systems Review of Systems: A 10 system review of systems was completed on the patient and is negative except for what is stated in the HPI. Nursing and ancillary documentation was reviewed. [facility] Past Medical History Medical History (Updated 07/03/25 @ 03:18 by Mauricio Grier MD) Dislocation of shoulder region Exam Narrative: GENERAL: Well-appearing, well-nourished, and in no acute distress. HEAD: Normocephalic, atraumatic. EYES: PERRLA and EOMI. ENT: Nares clear, no rhinorrhea or epistaxis. Mucous membranes moist. NECK: Supple. CHEST: Clear to auscultation. No respiratory distress. Small abrasion present in right anterior chest wall HEART: Regular rate and rhythm. No murmur heard. Normal peripheral pulses. ABDOMEN: Soft, nontender, nondistended, normal active bowel sounds. EXTREMITIES: Normal range of motion except for right upper extremity which is limited due to dislocation. No edema. SKIN: Warm, dry, no rash. NEURO: No focal deficits. Alert and oriented x3. PSYCH: Normal mood and affect. Course Vital Signs Vital signs: Vital Signs Temperature 36.3 C L 07/03/25 01:14 Pulse Rate 56 L 07/03/25 01:14 Respiratory Rate 28 H 07/03/25 01:14 Blood Pressure 106/88 07/03/25 01:14 Pulse Oximetry 94 07/03/25 01:14 Oxygen Delivery Room Air 07/03/25 01:14 Temperature 36.7 C 07/03/25 02:38 Pulse Rate 61 07/03/25 02:38 Respiratory Rate 26 H 07/03/25 02:38 Blood Pressure 91/73 L 07/03/25 01:49 Pulse Oximetry 94 07/03/25 02:38 Oxygen Delivery Room Air 07/03/25 02:38 Procedures Orthopedic Joint Reduction Joint #1: Orthopedic Joint Reduction Date: 07/03/25 Orthopedic Joint Reduction Time: 02:45 Side: right Joint Reduction Location: shoulder Analgesia: procedural sedation Pre-Procedure Neuro Vascular Exam: normal Local Anesthesia: none Shoulder Technique Used (if applicable): Angelique Post-reduction neuro exam: intact Post-reduction vascular: intact Post Reduction X-Ray Obtained: Yes Post Reduction X-Ray Results: reduced Splint Applied: Yes Patient Tolerated Procedure: well Procedural Sedation Procedural Sedation #1: Procedural Sedation Date: 07/03/25 Procedural Sedation Time: 02:41 Presedation Evaluation: GENERAL: Well-appearing, well-nourished, and in no acute distress. HEAD: Normocephalic, atraumatic. EYES: PERRLA and EOMI. ENT: Nares clear, no rhinorrhea or epistaxis. Mucous membranes moist. NECK: Supple. CHEST: Clear to auscultation. No respiratory distress. HEART: Regular rate and rhythm. No murmur heard. Normal peripheral pulses. ABDOMEN: Soft, nontender, nondistended, normal active bowel sounds. EXTREMITIES: Normal range of motion deformity present of the right shoulder. No edema. SKIN: Warm, dry, no rash. NEURO: No focal deficits. Alert and oriented x3. PSYCH: Normal mood and affect. Procedure: Close reduction of right shoulder Time Out: 238 Informed Consent Obtained: yes Equipment in Room: bag and mask, capnography, quality assurance monitor, crash cart, oxygen, pulse oximeter and suction Plan for Sedation: moderate sedation ASA Class: II Mallampati Classification: class III NPO Status: last solid food (hours ago) (6) and last liquid food (hours ago) (2) Explanation to Patient/Family: Risk/Benefits/Alternatives and Pt/Family agreed with plan Pt. Educated on Procedural Sedation: Yes Re-evaluated immediately prior: Yes Preparation: quality assurance monitor applied, pulse oximeter, capnometry used, supplemental O2 applied, suction/airway equipment at bedside and IV secured IV Propofol dose (mg): 100 Reversal Agents Used: none Patient Tolerated Procedure: well Complications: Respiratory Depression-Repositioning Required Interventions: oxygen applied, airway repositioned and assist by BVM Total Sedation Time (min): 7 Medical Decision Making MDM Narrative Medical decision making narrative: Differential diagnosis includes fracture, dislocation Plain film x-ray showed evidence a shoulder dislocation The shoulder was reduced Post reduction x-ray showed no evidence of fracture Patient was placed in a shoulder immobilizer and instructed to follow-up with orthopedics Vital Signs Vital Signs: Vital Signs Temperature 36.3 C L 07/03/25 01:14 Pulse Rate 56 L 07/03/25 01:14 Respiratory Rate 28 H 07/03/25 01:14 Blood Pressure 106/88 07/03/25 01:14 Pulse Oximetry 94 07/03/25 01:14 Oxygen Delivery Room Air 07/03/25 01:14 Temperature 36.7 C 07/03/25 02:38 Pulse Rate 61 07/03/25 02:38 Respiratory Rate 26 H 07/03/25 02:38 Blood Pressure 91/73 L 07/03/25 01:49 Pulse Oximetry 94 07/03/25 02:38 Oxygen Delivery Room Air 07/03/25 02:38 Discharge Plan Discharge Clinical Impression: Dislocation of shoulder region Patient Disposition: Home Condition: Stable Instructions: Antibiotic Form, Shoulder Dislocation (ED), Moderate Sedation (ED), Closed Reduction (ED), Shoulder Immobilizer (ED) Patient Language: Chinese Prescriptions: New hydrocodone-acetaminophen 5-325 mg tablet 1 tablet PO Q6H PRN (Reason: pain) 3 Days Qty: 12 0RF Follow-up/Referrals: Marisol,Man Tapia MD [Primary Care Provider] Jonathan Weller MD [Physician, Orthopedics] Time of Disposition: 03:19
== END 2025-07-03 04:11 | disposition home or self-care (01) ==
PROVIDERS: Emergency Provider Emergency Medicine; PCP Internal Medicine
DX: S43.004A Unspecified dislocation of right shoulder joint, initial encounter (principal); W01.0XXA Fall on same level from slipping, tripping and stumbling without subsequent striking against object, initial encounter
CPT/HCPCS: 23650; 73030; 96374; 96375; 99285; J2704; J7030